=== PATIENT | male | born 1970 | race Caucasian/White ===

== ENCOUNTER 2019-11-13 11:41 | Outpatient (CLI) | payer SELFPAY ==
--- NOTE | 2019-11-13 11:50 | XR_ITS ---
WS: [id number] Left knee, 3 views, 11/13/2019 Clinical Data: KNEE PAIN Comparison: AP views of both knees and additional right knee views, 06/17/2013.. Findings: No fractures or dislocations are seen. The joint spaces are normal. The patella is intact. The soft t issues are unremarkable. There are small spurs of the anterior superior and anterior inferior aspects of the left patella. The posterior patella is unremarkable. XR/XR knee LT 3V* [id number] Impression: Mild osteoarthritis of the left patella.
--- NOTE | 2019-11-13 11:50 | XR_ITS ---
WS: [id number] AP and frog leg views of both hips, 11/13/2019 Clinical Data: HIP PAIN Comparison: AP pelvis and both hips, 05/26/2015. Findings: The pubic symphysis is normal. There are no fractures or dislocations. There is irregularity of both acetabula which may indicate mild osteoarthritis. The SI joints show fusion. This is unchanged from coreen ulloa previous study. . XR/XR hip BI 3-4V wo/w pel [id number] Impression: 1. Fusion of both SI joints unchanged from previous study. 2. Irregularity of both lateral acetabular lips suggestive of osteoarthritis.
--- NOTE | 2019-11-13 11:50 | XR_ITS ---
WS: [id number] Right knee, 3 views, 11/13/2019 Clinical Data: KNEE PAIN Comparison: Right knee, 06/17/2013. Findings: No fractures or dislocations are seen. The joint spaces are normal. The patella is intact. The soft t issues are unremarkable. Mild posterior irregularity of the patella is seen. There is a small anterior superior spur. XR/XR knee RT 3V* [id number] Impression: Right patellar osteoarthritis.
== END 2019-11-13 11:42 | disposition home or self-care (01) ==
LOC: RAD 11:46
PROVIDERS: PCP Family Medicine; Visit Provider Family Medicine
DX: M17.0 Bilateral primary osteoarthritis of knee (principal); M25.552 Pain in left hip; M25.562 Pain in left knee; M25.561 Pain in right knee; Z98.1 Arthrodesis status
CPT/HCPCS: 73522; 73562

== ENCOUNTER → 2020-02-18 08:25 | Outpatient (BNVA) | payer MEDICAID, SELFPAY | PROVIDERS: PCP Family Medicine; Referring Provider Family Medicine; Visit Provider Urology | DX: Z12.5 Encounter for screening for malignant neoplasm of prostate (principal); N40.0 Benign prostatic hyperplasia without lower urinary tract symptoms; N52.9 Male erectile dysfunction, unspecified; N40.1 Benign prostatic hyperplasia with lower urinary tract symptoms | CPT/HCPCS: 81001 ==

== ENCOUNTER → 2020-03-18 09:06 | Outpatient (BNVA) | payer SELFPAY | PROVIDERS: PCP Family Medicine; Visit Provider Family Medicine | DX: Z13.6 Encounter for screening for cardiovascular disorders (principal); M25.561 Pain in right knee; M25.562 Pain in left knee; G89.29 Other chronic pain; M54.42 Lumbago with sciatica, left side; M54.41 Lumbago with sciatica, right side | CPT/HCPCS: 80053; 80061; 85025 ==

== ENCOUNTER → 2020-09-23 09:06 | Outpatient (BNVA) | payer MEDICAID, SELFPAY | PROVIDERS: PCP Family Medicine; Visit Provider Psychiatry & Neurology Psychiatry | DX: F33.2 Major depressive disorder, recurrent severe without psychotic features (principal); F41.1 Generalized anxiety disorder; F43.12 Post-traumatic stress disorder, chronic; F12.21 Cannabis dependence, in remission; F15.21 Other stimulant dependence, in remission; F10.21 Alcohol dependence, in remission | CPT/HCPCS: 99214 ==

== ENCOUNTER 2020-10-25 12:31 | Outpatient (CLI) | payer MEDICAID, SELFPAY ==
--- NOTE | 2020-10-25 13:00 | XR_ITS ---
WS: [id number] LUMBAR SPINE: 3 VIEWS TECHNIQUE: AP, lateral and L5-S1 spot. HISTORY: low back pain with radiculopathy COMPARISON: None available. Lumbar vertebra are normally aligned. Small endplate osteophytes at the thoracolumbar junction and L4. No fractures. Very mild facet joint arthritis at L4-5 and L5-S1. Loss of the normal SI joint articulation. Fusion across the SI joints. XR/XR lumbar spine 2-3V* [id number] IMPRESSION: 1. Bilateral SI joint fusion. 2. No lumbar spine fracture.
== END 2020-10-25 12:32 | disposition home or self-care (01) ==
LOC: RADWPI 12:36
PROVIDERS: PCP Family Medicine; Visit Provider Family Medicine
DX: M54.2 Cervicalgia (principal); M54.16 Radiculopathy, lumbar region
CPT/HCPCS: 72100

== ENCOUNTER → 2020-11-12 09:06 | Outpatient (BNVA) | payer MEDICAID, SELFPAY | PROVIDERS: PCP Family Medicine; Visit Provider Psychiatry & Neurology Psychiatry | DX: F33.2 Major depressive disorder, recurrent severe without psychotic features (principal); F41.1 Generalized anxiety disorder; F43.12 Post-traumatic stress disorder, chronic; F12.21 Cannabis dependence, in remission; F15.21 Other stimulant dependence, in remission; F10.21 Alcohol dependence, in remission | CPT/HCPCS: 99214 ==

== ENCOUNTER 2020-11-24 09:38 | Outpatient (RCR) | payer MEDICAID, SELFPAY | END 2020-12-01 23:59 | disposition home or self-care (01) | LOC: SPT 09:38 | PROVIDERS: PCP Family Medicine; Referring Provider Family Medicine; Visit Provider Family Medicine | DX: M54.42 Lumbago with sciatica, left side (principal); M54.41 Lumbago with sciatica, right side; G89.29 Other chronic pain | CPT/HCPCS: 97110; 97161 ==

== ENCOUNTER 2020-12-02 06:00 | Outpatient (RCR) | payer MEDICAID, SELFPAY | END 2020-12-31 23:59 | disposition home or self-care (01) | LOC: SPT 06:00 | PROVIDERS: PCP Family Medicine; Referring Provider Family Medicine; Visit Provider Family Medicine | DX: M54.42 Lumbago with sciatica, left side (principal); M54.41 Lumbago with sciatica, right side; G89.29 Other chronic pain | CPT/HCPCS: 97110 ==

== ENCOUNTER 2021-01-01 06:00 | Outpatient (RCR) | payer MEDICAID, SELFPAY | END 2021-01-31 23:59 | disposition home or self-care (01) | LOC: SPT 06:00 | PROVIDERS: PCP Family Medicine; Referring Provider Family Medicine; Visit Provider Family Medicine | DX: M54.42 Lumbago with sciatica, left side (principal); M54.41 Lumbago with sciatica, right side; G89.29 Other chronic pain | CPT/HCPCS: 97110; 97530 ==

== ENCOUNTER → 2021-01-07 08:02 | Outpatient (BNVA) | payer MEDICAID, SELFPAY | PROVIDERS: PCP Family Medicine; Visit Provider Psychiatry & Neurology Psychiatry | DX: F33.2 Major depressive disorder, recurrent severe without psychotic features (principal); F41.1 Generalized anxiety disorder; F43.12 Post-traumatic stress disorder, chronic; F12.21 Cannabis dependence, in remission; F15.21 Other stimulant dependence, in remission; F10.21 Alcohol dependence, in remission | CPT/HCPCS: 99214 ==

== ENCOUNTER 2021-02-01 06:00 | Outpatient (RCR) | payer MEDICAID, SELFPAY | END 2021-03-02 23:59 | disposition home or self-care (01) | LOC: SPT 06:00 | PROVIDERS: PCP Family Medicine; Referring Provider Family Medicine; Visit Provider Family Medicine | DX: M54.42 Lumbago with sciatica, left side (principal); M54.41 Lumbago with sciatica, right side; G89.29 Other chronic pain | CPT/HCPCS: 97110 ==

== ENCOUNTER → 2021-03-04 12:16 | Outpatient (BNVA) | payer MEDICAID, SELFPAY | PROVIDERS: PCP Family Medicine; Visit Provider Psychiatry & Neurology Psychiatry | DX: F33.2 Major depressive disorder, recurrent severe without psychotic features (principal); F41.1 Generalized anxiety disorder; F43.12 Post-traumatic stress disorder, chronic; F12.21 Cannabis dependence, in remission; F15.21 Other stimulant dependence, in remission | CPT/HCPCS: 99214 ==

== ENCOUNTER 2021-03-07 21:53 | Inpatient (IN) | payer MEDICAID, SELFPAY ==
[2021-03-07 21:53] VITALS: BP 73/58; PULSE 120; RESP 12; TEMP 36.7; O2SAT 86; BMI 32.1
--- NOTE | 2021-03-07 21:56 | ECG_ITS ---
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1970 Requested By: Litzy Holley Order Number: [id number] Reading MD: MARIE COOK Measurements Intervals [place] Rate: 124 P: 64 [place]: 166 QRS: -73 QRSD: 90 T: 47 QT: 264 QTc: 380 Interpretive Statements SINUS TACHYCARDIA LOW QRS VOLTAGE IN PRECORDIAL LEADS [QRS DEFLECTION < 1.0 mV IN CHEST LEADS] POSSIBLE RIGHT VENTRICULAR CONDUCTION DELAY [RSR (QR) IN V1/V2] INFERIOR MYOCARDIAL INFARCTION [40+ ms Q WAVE AND/OR ST/T ABNORMALITY IN II/aVF], PROBABLY OLD ANTEROLATERAL MYOCARDIAL INFARCTION [40+ ms Q WAVE IN I/aVL/V3-V6], OF INDETERMINATE AGE No previous ECG available for comparison Electronically Signed On 03-08-2021 20:12:56 CDT by MARIE COOK [id number]
--- NOTE | 2021-03-07 21:57 | ED_ITS ---
HPI - SOB/Dyspnea General: Chief Complaint: Shortness of Breath/Dyspnea Stated Complaint: ams and diff breathing Time Seen by Provider: 03/07/21 21:55 Source: patient and EMS Mode of arrival: EMS Limitations: altered mental status History of Present Illness: HPI Narrative: 50-year-old male is here with EMS for altered mental status, shortness of breath. They were called out for dyspnea when they arrived patient was 70% on room air. Only history known is bipolar. Patient here is altered and only able to tell me his name. He is ill- appearing here and does have rales and rhonchi. No known fever. No known sick contacts. He denies any chest pain. Review of Systems General: Reports: ROS unobtainable due to mental status Resp: Reports: dyspnea and non-productive cough PFS ED PFSH: Surgical History H/O hernia repair H/O knee surgery History of tonsillectomy History of tympanostomy tube placement Family History Father Heart disease Social History Smoking and tobacco status: former smoker Quit status (tobacco): has quit using tobacco Year quit tobacco: 2004 Second hand smoke exposure: Yes Smoking risk assessment/counseling performed?: Yes Tobacco counseling given: counseling >3 minutes Alcohol intake: current Alcohol intake frequency: holidays/special occasions only Marital status: Current occupational status: unemployed History of recent travel: No Physical Exam Const: COMMON NORMALS: alert; negative for patient oriented x3 GENERAL APPEARANCE: in distress and ill appearing ORIENTATION/CONSCIOUSNESS: Yes oriented to person; not oriented to place and not oriented to time HENMT: COMMON NORMALS: normocephalic and atraumatic HEAD & SCALP: normocephalic and atraumatic Eye: COMMON NORMALS: Equal, round and reactive pupils present and EOMs intact bilaterally PUPIL: Yes Equal, round and reactive pupils present Neck/C-Spine: COMMON NORMALS: full ROM and supple Chest: COMMONS NORMALS: normal inspection of the chest and normal palpation of entire chest wall Resp: COMMON NORMALS: No retractions EFFORT & INSPECTION: Yes tachypneic and Yes respiratory distress AUSCULTATION: rales Cardio: COMMON NORMALS: regular rhythm and No murmurs present (Cardio) RATE: tachycardic RHYTHM: regular rhythm GI: COMMON NORMALS: Normal to inspection, nondistended, normoactive bowel sounds present, Soft to palpation, non-tender and no masses PALPATION: Yes Soft to palpation Extremity: COMMON NORMALS: normal to inspection and full ROM Neuro: COMMON NORMALS: moves all extremities and no focal motor deficits; negative for patient oriented x3 SENSORIUM/ORIENTATION: Yes alert, Yes oriented to person, No oriented to place and No oriented to time Psych: COMMON NORMALS: cooperative; negative for mental status grossly normal Skin: COMMON NORMALS: no rashes or lesions noted and no wounds GENERAL SKIN EXAM: no rashes or lesions noted Procedures Central Line Placement Right IJ: Time Out Performed: Yes Patient Placed on Monitor/Pulse Ox: Yes MD Prep: mask, gown and gloves Central Line Prep: Povidone-Iodine 1% Local Anesthetic: lidocaine 1% Amount of anesthesia used (mL): 2 Ultrasound Used for Placement: Yes Central Line Lumen Inserted: triple Post Procedure: sutured in place, good blood return, all ports aspirated, flushed, capped and sterile dressing applied Post Procedure X-Ray: tip of catheter in good position and no pneumothorax seen Patient Tolerated Procedure: well Complications: none Course Vital Signs: Vital signs: Vital Signs Temperature 98.1 F 03/07/21 21:53 Pulse Rate 125 H 03/07/21 22:23 Respiratory Rate 12 03/07/21 21:53 Blood Pressure 73/58 03/07/21 21:53 Pulse Oximetry 94 03/07/21 22:23 MDM - SOB/Dyspnea MDM Narrative: Medical decision making narrative: Patient presents here with septic shock with dyspnea as well. Patient does have elevated lactate acute kidney injury and elevated white count. Patient still quite hypotensive after 2 L of fluid. Patient had a central line placed and started on Levophed. Patient also given IV antibiotics. Spoke to hospitalist will admit to the ICU. Lab Data: Labs: Lab Results 03/07/21 03/07/21 03/07/21 Range/Units 22:20 22:33 22:33 WBC 21.9 H (4.0-10.0) 10^3/ uL RBC 3.50 L (4.1-5.3) 10^6/u L Hgb 9.1 L (11.7-16.6) g/dL Hct 31.3 L (42.0-52.0) % MCV 89.4 (80-94) fL MCH 26.0 L (28.0-34.0) pg MCHC 29.1 L (30.0-36.0) g/dL RDW 16.5 H (12.1-15.1) % Plt Count 318 (130-400) 10^3/c mm MPV 10.7 H (7.4-10.4) fL Neut % (Auto) 83.3 % Lymph % (Auto) 6.8 % [place] % (Auto) 9.0 % Eos % (Auto) 0.0 % Baso % (Auto) 0.4 % Neut # (Auto) 18.20 H (1.8-7.7) 10^3/u L Lymph # (Auto) 1.5 (0.8-4.8) 10^3/u L [place] # (Auto) 2.0 H (0.2-0.9) 10^3/u L Eos # (Auto) 0.0 (0.0-0.8) 10^3/u L Baso # (Auto) 0.1 (0.0-0.1) 10^3/u L Nucleated RBC % (a uto) 0.1 % Nucleated RBCs # 0.0 /100WBC D-Dimer 1.57 H (0-0.59) ug/mIFE U Sodium (136-145) mmol/L Potassium (3.5-5.1) mmol/L Chloride (98-107) mmol/L Carbon Dioxide (22-29) mmol/L Anion Gap (5-19) BUN (6-20) mg/dL Creatinine (0.7-1.2) mg/dL GFR Calculation (90-130) mL/min Glucose (65-115) mg/dL Calculated Osmolal ity (285-295) mOsm/k g Lactic Acid (0.5-2.2) mmol/L Calcium (8.5-10.5) mg/dL Total Bilirubin (0.15-1.2) mg/dL AST (0-40) U/L ALT (0-41) U/L Alkaline Phosphata se (40-130) IU/L Troponin T Baselin e (0-15) ng/L C-Reactive Protein (0.0-4.9) mg/L NT-Pro-B Natriuret Pep (0-125) pg/mL Total Protein (6.6-8.7) g/dL Albumin (3.5-5.2) g/dL Globulin (1.3-4.6) g/dL SARS-CoV-2 Ag (Rap id) Negative (Negative) 03/07/21 03/07/21 03/07/21 Range/Units 22:33 22:33 22:33 WBC (4.0-10.0) 10^3/ uL RBC (4.1-5.3) 10^6/u L Hgb (11.7-16.6) g/dL Hct (42.0-52.0) % MCV (80-94) fL MCH (28.0-34.0) pg MCHC (30.0-36.0) g/dL RDW (12.1-15.1) % Plt Count (130-400) 10^3/c mm MPV (7.4-10.4) fL Neut % (Auto) % Lymph % (Auto) % [place] % (Auto) % Eos % (Auto) % Baso % (Auto) % Neut # (Auto) (1.8-7.7) 10^3/u L Lymph # (Auto) (0.8-4.8) 10^3/u L [place] # (Auto) (0.2-0.9) 10^3/u L Eos # (Auto) (0.0-0.8) 10^3/u L Baso # (Auto) (0.0-0.1) 10^3/u L Nucleated RBC % (a uto) % Nucleated RBCs # /100WBC D-Dimer (0-0.59) ug/mIFE U Sodium 136 (136-145) mmol/L Potassium 6.4 H (3.5-5.1) mmol/L Chloride 99 (98-107) mmol/L Carbon Dioxide 24 (22-29) mmol/L Anion Gap 19.4 H (5-19) BUN 42 H (6-20) mg/dL Creatinine 3.3 H (0.7-1.2) mg/dL GFR Calculation 20.0 L (90-130) mL/min Glucose 185 H (65-115) mg/dL Calculated Osmolal ity 297 H (285-295) mOsm/k g Lactic Acid 5.0 H* (0.5-2.2) mmol/L Calcium 8.7 (8.5-10.5) mg/dL Total Bilirubin 0.5 (0.15-1.2) mg/dL AST 39 (0-40) U/L ALT 44 H (0-41) U/L Alkaline Phosphata se 118 (40-130) IU/L Troponin T Baselin e 20 H (0-15) ng/L C-Reactive Protein 127.2 H (0.0-4.9) mg/L NT-Pro-B Natriuret Pep 2846 H (0-125) pg/mL Total Protein 5.8 L (6.6-8.7) g/dL Albumin 3.4 L (3.5-5.2) g/dL Globulin 2.4 (1.3-4.6) g/dL SARS-CoV-2 Ag (Rap id) (Negative) Imaging Data^: CXR: Attestation: I personally reviewed and interpreted this imaging study as follows: Radiologist's impression: [address] [address] XRay Report Signed Patient: León Alvarado Unit #: [id number] : 1970 Age/Sex: 50 / M ADM Date: 03/07/21 Loc: ER Room/Bed: Attending Dr: Ordering Provider/Ordering MD: Litzy Holley MD Date of Service: 03/07/21 Procedure(s): XR chest 1V portable [id number] Accession Number(s): [id number] Report Number: [id number] PROCEDURE INFORMATION: Exam: XR Chest Exam date and time: 03/07/2021 9:55 PM Age: 50 years old Clinical indication: Shortness of breath; Additional info: SOB TECHNIQUE: Imaging protocol: XR of the chest. Views: 1 view. Total images: 1 COMPARISON: No relevant prior studies available. FINDINGS: Lungs: No visible active interstitial or alveolar airspace disease. Pleural spaces: Unremarkable. No pleural effusion. No pneumothorax. Heart/Mediastinum: Cardiac structures and configuration unremarkable. Bones/joints: Unremarkable. XR/XR chest 1V portable [id number] IMPRESSION: Nonacute. Dictated By: Juanito Gonzales Signed By: Juanito Gonzales Signed Date/Time: 03/07/212233 DD/ 32 EKG Data^: EKG 1: Attestation: I personally reviewed and interpreted this EKG as follows: EKG Interpretation Date: 03/07/21 EKG interpretation time: 22:17 Interpretation: sinus tach hr [address] or t wave abnormalities qrs 90 qtc 338 EKG 2: Attestation: I personally reviewed and interpreted this EKG as follows: EKG Interpretation Date: 03/08/21 EKG interpretation time: 00:06 Interpretation: sinus tach hr [address] or t wave abnormalities qrs 76 qtc 345 Critical Care Time 2 Critical Care Time: Critical Care Time: Yes Total Critical Care Time: 35 Attestation: This case had a high probability of a clinically significant, sudden, or life threatening deterioration of this patient's condition which required my full and direct attention, intervention and personal management. 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
[2021-03-07 22:02] VITALS: BP 103/50; PULSE 123; RESP 26; O2SAT 93
[2021-03-07 22:23] VITALS: PULSE 125; RESP 28; O2SAT 94
[2021-03-07 22:40] LABS: Basophils # 0.1 10^3/uL (0.0-0.1); Basophils % 0.4 %; Hematocrit 31.3 % (42.0-52.0); Hemoglobin 9.1 g/dL (11.7-16.6); Lymphocytes # 1.5 10^3/uL (0.8-4.8); Lymphocytes % 6.8 %; Mean Corpuscular HGB Conc 29.1 g/dL (30.0-36.0); Mean Corpuscular Volume 89.4 fL (80-94); Mean Platelet Volume 10.7 fL (7.4-10.4); Neutrophils % 83.3 %; Nucleated Red Blood Cells % 0.1 %; Platelet Count 318 10^3/cmm (130-400); Red Cell Distribution Width 16.5 % (12.1-15.1); White Blood Count 21.9 10^3/uL (4.0-10.0)
[2021-03-07 23:03] LABS: D Dimer 1.57 ug/mIFEU (0-0.59); Troponin(5th) Baseline 20 ng/L (0-15)
[2021-03-07 23:06] LABS: Alanine Aminotransferase 44 U/L (0-41); Albumin Level 3.4 g/dL (3.5-5.2); Alkaline Phosphatase 118 IU/L (40-130); Anion Gap 19.4 (5-19); Aspartate Amino Transferase 39 U/L (0-40); Blood Urea Nitrogen 42 mg/dL (6-20); C Reactive Protein 127.2 mg/L (0.0-4.9); Calcium 8.7 mg/dL (8.5-10.5); Carbon Dioxide 24 mmol/L (22-29); Chloride 99 mmol/L (98-107); Globulin 2.4 g/dL (1.3-4.6); Glucose 185 mg/dL (65-115); Osmolality Calculated 297 mOsm/kg (285-295); Potassium 6.4 mmol/L (3.5-5.1); Sodium 136 mmol/L (136-145); Total Bilirubin 0.5 mg/dL (0.15-1.2); Total Protein 5.8 g/dL (6.6-8.7)
[2021-03-07] MEDS: piperacillin-tazobactam 3.375 GM in sodium chloride 0.9% (plus) 50 ML IV (23:15)
[2021-03-07 23:26] LABS: Slide Review Slide Review Perform
[2021-03-07 23:30] LABS: NT Pro B Type Natriuretic Pept 2846 pg/mL (0-125)
[2021-03-07] MEDS: sodium chloride 0.9% 1,000 ML 999 ML IV ×2 (23:30)
[2021-03-07 23:33] LABS: SARS Covid-2 Antigen Negative (Negative)
--- NOTE | 2021-03-07 23:48 | XRR_ITS ---
PROCEDURE INFORMATION: Exam: XR Chest Exam date and time: 03/07/2021 11:48 PM Age: 50 years old Clinical indication: Other vascular access device placement or adjustment; Central line, non-tunnelled; Patient HX: Check for central line placement TECHNIQUE: Imaging protocol: XR of the chest. Views: 1 view. COMPARISON: CR (CHEST, ) 03/07/2021 9:54 PM FINDINGS: Tubes, catheters and devices: Right-sided central venous catheter is been placed with the tip in the distal superior vena cava. No pneumothorax. Lungs: There are low lung volumes. Otherwise, the lungs are clear. Pleural spaces: See Tubes, catheters and devices finding. Heart/Mediastinum: Unremarkable. No cardiomegaly. Bones/joints: Unremarkable. XR/XR chest 1V portable [id number] IMPRESSION: 1. Right-sided central venous catheter is been placed with the tip in the distal superior vena cava. No pneumothorax. 2. There are low lung volumes. Otherwise, the lungs are clear.
--- NOTE | 2021-03-07 23:56 | ECG_ITS ---
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1970 Requested By: Litzy Holley Order Number: [id number] Reading MD: MARIE COOK Measurements Intervals [place] Rate: 114 P: 58 [place]: 179 QRS: -67 QRSD: 76 T: 44 QT: 277 QTc: 383 Interpretive Statements SINUS TACHYCARDIA WITH OCCASIONAL ECTOPIC PREMATURE COMPLEXES LOW QRS VOLTAGE IN PRECORDIAL LEADS [QRS DEFLECTION < 1.0 mV IN CHEST LEADS] POSSIBLE RIGHT VENTRICULAR CONDUCTION DELAY [RSR (QR) IN V1/V2] POSSIBLE ANTERIOR MYOCARDIAL INFARCTION [30 ms Q WAVE IN V3/V4, OR R < 0.2 mV IN V4], OF INDETERMINATE AGE INFERIOR MYOCARDIAL INFARCTION [40+ ms Q WAVE AND/OR ST/T ABNORMALITY IN II/aVF], PROBABLY OLD Compared to ECG 03/07/2021 22:17:49 No significant changes Electronically Signed On 03-08-2021 20:14:07 CDT by MARIE COOK [id number]
[2021-03-08] VITALS (95 sets, daily range): BP systolic 73–165; BP diastolic 52–113; PULSE 1–138; RESP 14–40; TEMP 36.8–37.9; O2SAT 85–100
[2021-03-08] MEDS: vancomycin 1,000 MG in sodium chloride 0.9% 250 ML 250 MG IV (00:15)
[2021-03-08 00:16] LABS: Creatine Phosphokinase 440 U/L (39-308)
[2021-03-08 00:23] LABS: Reflex Lactate Order REFLEX LACTIC ORDERD
[2021-03-08] MEDS: sodium chloride 0.9% 1,000 ML 999 ML IV (00:45)
[2021-03-08 01:21] LABS: Add Urine Microscopic? YES; Bilirubin Urine Neg (Negative); Blood Urine 3+ (Negative); Glucose Urine UA Norm (Normal); Ketones Urine 1+ (Negative); Leukocyte Esterase Urine Negative (Negative); Nitrate Urine Negative (Negative); Protein Urine Trace (Negative); Specific Gravity, Urine 1.015 (1.005-1.030); Urine Appearance SL Hazy (CLEAR); Urine Color Yellow (Yellow); Urobilinogen Urine Norm (Negative); pH Urine 5 (5-7)
[2021-03-08 01:26] LABS: RBC Urine >100 /hpf (0-2)
[2021-03-08 01:27] LABS: Add Urine Culture? Yes; Bacteria Urine 2+ /hpf; Hyaline Casts Urine 0-4 /lpf; Mucus Urine 1+ /hpf; Squamous Epithelial Cell Urine 0-4 /hpf (0-5)
--- NOTE | 2021-03-08 01:31 | PM.HP ---
Providers/Chief Complaint Admitting Physician: Tahira Harding MD Primary Care Provider: Shanti Mckeon DO Chief Complaint: ams and diff breathing History of Present Illness León Alvarado is a 50 year old male who presented to the emergency room with decreased level of responsiveness and low oxygen levels. He was brought in by EMS. He is not really able to provide much in the way of history. His had been here earlier but is not present at the time. Information that was obtained was that he had not been feeling well for a couple of days. He has had cough. He can tell me that he had a little bit of a runny nose and a sore throat. He has not been eating as much. He denies chest pain. Unclear if he has had any fevers. He does not recall any. Denies any known sick contacts and reports that he actually had Covid vaccine describing receiving the first dose over at [facility] (which is consistent with where we were originally administering doses) and that a second dose was at the [facility] pharmacy. He cannot recall the dates. He states he has a card in his wallet but it is not here with him at the moment. Rapid Covid antigen in the emergency room was negative. PCR has been collected. Initial vitals on arrival to the emergency room today showed that he was afebrile, tachycardic with heart rate in the 120s, hypoxic with oxygen saturation in the mid 80s and with significant hypotension with pressures in the 70s. He received IV fluids and ultimately required initiation of pressors. He was placed on oxygen therapy and a trial of BiPAP was initiated although he would not maintain it. He continues to be tachycardic but with treatment oxygen levels and blood pressures have improved. He has multiple laboratory abnormalities. He is being admitted to the ICU for further care. He denies any tick bites but states that his had some. He denies significant vomiting or diarrhea. He denies spending a lot of time outside in the heat. He does admit to difficulty initiating a stream of urine but denies any hematuria, dark urine or flank pain. History is obtained from combination of patient and ER records today as well as review of prior clinical records in [facility]. Review of Systems Const: Reports: body aches, change in weight (Describes weight gain) and malaise; Denies: fever(s) or chills Eyes: Denies: photophobia or eye discomfort ENMT: Reports: throat pain, dental pain, dry mouth and nasal congestion Card: Denies: chest pain, palpitations or edema Resp: Reports: dyspnea, productive cough and non-productive cough GI: Reports: other (Has had distended abdomen for a long time); Denies: abdominal pain, nausea, vomiting, diarrhea, constipation, hematochezia or melena : Reports: urinary hesitancy and difficulty starting urination; Denies: flank pain, dysuria, oliguria or hematuria Musc: Reports: back pain (Chronic, no recent increase) and extremity pain (Chronic, not new); Denies: joint swelling or joint redness Skin/Breast: Denies: rash or sores Neuro: Denies: headache(s), numbness in extremities, weakness in extremities or difficulty walking Psych: Reports: other (Denies any acute difficulty with psychiatric medications/diagnoses) Monico/Lymph: Denies: easy bruising or easy bleeding Medications/Allergies Home Medications Medication Instructions Recorded Confirmed Last Taken Type ibuprofen 600 mg tablet 600 mg PO Q8H PRN #90 tab 05/26/20 03/04/21 Unknown Rx amoxicillin 875 mg-potassium 1 tab PO BID #20 tab 11/02/20 01/07/21 Unknown Rx clavulanate 125 mg tablet cyclobenzaprine 10 mg tablet 10 mg PO .po q hs #30 tab 11/02/20 03/04/21 Unknown Rx gabapentin 600 mg tablet 600 mg PO TID #90 tab 11/02/20 03/04/21 Unknown Rx tamsulosin 0.4 mg capsule 0.4 mg PO DAILY #30 cap 02/02/21 03/04/21 Unknown Rx buspirone 10 mg tablet 20 mg PO TID #180 tab 03/04/21 03/04/21 Unknown Rx clomipramine 50 mg capsule 50 mg PO .HS #60 cap 03/04/21 03/04/21 Unknown Rx hydroxyzine HCl 50 mg tablet 100 mg PO .HS PRN #60 tab 03/04/21 03/04/21 Unknown Rx mirtazapine 30 mg tablet 60 mg PO .HS #60 tab 03/04/21 03/04/21 Unknown Rx quetiapine 100 mg tablet 100 mg PO .HS #30 tab 03/04/21 03/04/21 Unknown Rx venlafaxine 150 mg 150 mg PO DAILY #30 cap 03/04/21 03/04/21 Unknown Rx capsule,extended release 24 hr venlafaxine 75 mg capsule,extended 75 mg PO DAILY #30 cap 03/04/21 03/04/21 Unknown Rx release 24 hr Allergies Allergy/AdvReac Type Severity Reaction Status Date / Time No Known Allergies Allergy Verified 03/04/21 12:43 PFSH Acute PFSH: Medical History (Updated 03/08/21 @ 02:18 by Tahira Harding MD) Alcohol use disorder, moderate, in sustained remission Amphetamine use disorder, moderate, in sustained remission Bilateral hearing loss BPH (benign prostatic hyperplasia) Cannabis use disorder, moderate, in sustained remission Chronic low back pain with bilateral sciatica Erectile dysfunction Generalized anxiety disorder Major depressive disorder, 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, bilateral Post-traumatic stress disorder, chronic Speech impediment Surgical History H/O hernia repair H/O knee surgery History of tonsillectomy History of tympanostomy tube placement Family History Father Heart disease Social History (Updated 03/08/21 @ 01:32 by Tahira Harding MD) Smoking and tobacco status: former smoker Quit status (tobacco): has quit using tobacco Year quit tobacco: 2004 Alcohol intake: current Alcohol intake frequency: holidays/special occasions only Substance/Drug Use: former Date of last use: thc Marital status: Current occupational status: unemployed Vitals/I&O/Wt Last Vital Signs Temp 98.1 F 03/07/21 21:53 Pulse 125 H 03/07/21 22:23 Resp 26 H 03/07/21 22:02 BP 103/50 03/07/21 22:02 Pulse Ox 94 03/07/21 22:23 Weight last 48 hrs Weight 113.398 kg Physical Exam Narrative: EXAM NARRATIVE: Constitutional: Awake, able to answer some questions though difficult to obtain full history, ill-appearing HEENT: Normocephalic, very dry lips, poor dentition, halitosis, nasopharynx is clear, mucous membranes are dry, has an underbite Neck: Supple, no rigidity Respiratory: Clear to auscultation bilaterally, tachypneic, pauses every now and then when talking, oxygen saturations dropped into the 80s when he takes off his oxygen, currently requiring 5 L Cardiovascular: Tachycardic, regular rhythm, no murmurs auscultated Abdomen: Soft, distended, nontender, easily reducible umbilical hernia approximately quarter sized, positive bowel sounds : Normal external genitalia, Bills catheter noted Extremities: No pitting edema, feet are cool to touch, no mottling, capillary refill less than 3 seconds, dorsalis pedis and posterior tibialis pulses are 1+ and equal Skin: Dry, pale, scattered minor sores, no petechiae or rashes Neuro: Hard of hearing, speech is understandable although stutters at times, has an underbite but face otherwise appears symmetric, moves all extremities, handgrip equal, toes are downgoing Psych: Calm, cooperative, oriented to person, place and knows that he is in the emergency room and being admitted to the hospital Data : 03/07/21 22:33 03/07/21 22:33 Micro: Microbiology 03/07/21 22:30 Blood Culture - Preliminary Blood SPECIMEN COLLECTED 03/07/21 22:33 Blood Culture - Preliminary Blood SPECIMEN COLLECTED Other data: Laboratory Results WBC 21.9 10^3/uL (4.0-10.0) H 03/07/21 22:33 RBC 3.50 10^6/uL (4.1-5.3) L 03/07/21 22:33 Hgb 9.1 g/dL (11.7-16.6) L 03/07/21 22:33 Hct 31.3 % (42.0-52.0) L 03/07/21 22: MCV 89.4 fL (80-94) 03/07/21 22:33 MCH 26.0 pg (28.0-34.0) L 03/07/21 22:33 MCHC 29.1 g/dL (30.0-36.0) L 03/07/21 22: RDW 16.5 % (12.1-15.1) H 03/07/21 22:33 Plt Count 318 10^3/cmm (130-400) 03/07/21 22: MPV 10.7 fL (7.4-10.4) H 03/07/21 22:33 Neut % (Auto) 83.3 % 03/07/21 22:33 Lymph % (Auto) 6.8 % 03/07/21 22:33 Bandera % (Auto) 9.0 % 03/07/21 22:33 Eos % (Auto) 0.0 % 03/07/21 22:33 Baso % (Auto) 0.4 % 03/07/21 22:33 Neut # (Auto) 18.20 10^3/uL (1.8-7.7) H 03/07/21 22:33 Lymph # (Auto) 1.5 10^3/uL (0.8-4.8) 03/07/21 22:33 Bandera # (Auto) 2.0 10^3/uL (0.2-0.9) H 03/07/21 22:33 Eos # (Auto) 0.0 10^3/uL (0.0-0.8) 03/07/21 22:33 Baso # (Auto) 0.1 10^3/uL (0.0-0.1) 03/07/21 22:33 Nucleated RBC % (auto) 0.1 % 03/07/21 22: Nucleated RBCs # 0.0 /100WBC 03/07/21 22:33 D-Dimer 1.57 ug/mIFEU (0-0.59) H 03/07/21 22:33 Sodium 136 mmol/L (136-145) 03/07/21 22:33 Potassium 6.4 mmol/L (3.5-5.1) H 03/07/21 22:33 Chloride 99 mmol/L (98-107) 03/07/21 22:33 Carbon Dioxide 24 mmol/L (22-29) 03/07/21 22:33 Anion Gap 19.4 (5-19) H 03/07/21 22:33 BUN 42 mg/dL (6-20) H 03/07/21 22:33 Creatinine 3.3 mg/dL (0.7-1.2) H 03/07/21 22:33 GFR Calculation 20.0 mL/min (90-130) L 03/07/21 22:33 Glucose 185 mg/dL (65-115) H 03/07/21 22:33 Calculated Osmolality 297 mOsm/kg (285-295) H 03/07/21 22:33 Lactic Acid 5.0 mmol/L (0.5-2.2) H* 03/07/21 22:33 Calcium 8.7 mg/dL (8.5-10.5) 03/07/21 22:33 Total Bilirubin 0.5 mg/dL (0.15-1.2) 03/07/21 22:33 AST 39 U/L (0-40) 03/07/21 22:33 ALT 44 U/L (0-41) H 03/07/21 22:33 Alkaline Phosphatase 118 IU/L (40-130) 03/07/21 22:33 Creatine Kinase 440 U/L (39-308) H* 03/07/21 22:38 Troponin T Baseline 20 ng/L (0-15) H 03/07/21 22:33 C-Reactive Protein 127.2 mg/L (0.0-4.9) H 03/07/21 22:33 NT-Pro-B Natriuret Pep 2846 pg/mL (0-125) H 03/07/21 22:33 Total Protein 5.8 g/dL (6.6-8.7) L 03/07/21 22:33 Albumin 3.4 g/dL (3.5-5.2) L 03/07/21 22:33 Globulin 2.4 g/dL (1.3-4.6) 03/07/21 22:33 Urine Color Yellow (Yellow) 03/08/21 00:00 Urine Appearance Sl hazy (CLEAR) 03/08/21 00:00 Urine pH 5 (5-7) 03/08/21 00:00 Ur Specific Pheba 1.015 (1.005-1.030) 03/08/21 00:00 Urine Protein Trace (Negative) 03/08/21 00:00 Urine Glucose (UA) Norm (Normal) 03/08/21 00:00 Urine Ketones 1+ (Negative) H 03/08/21 00:00 Urine Blood 3+ (Negative) H 03/08/21 00:00 Urine Nitrate Negative (Negative) 03/08/21 00:00 Urine Bilirubin Neg (Negative) 03/08/21 00:00 Urine Urobilinogen Norm mg/dL (Negative) 03/08/21 00:00 Ur Leukocyte Esterase Negative (Negative) 03/08/21 00:00 Urine RBC >100 /hpf (0-2) H 03/08/21 00:00 Urine WBC 5-10 /hpf (0-5) H 03/08/21 00:00 Ur Squamous Epith Cells 0-4 /hpf (0-5) H 03/08/21 00:00 Amorphous Sediment Not Reportable 03/08/21 00:00 Urine Bacteria 2+ /hpf (NONE) H 03/08/21 00:00 Hyaline Casts 0-4 /lpf H 03/08/21 00:00 Urine Mucus 1+ /hpf 03/08/21 00:00 SARS-CoV-2 Ag (Rapid) Negative (Negative) 03/07/21 22:20 Impressions Chest X-Ray 03/07/21 23:48 IMPRESSION: 1. Right-sided central venous catheter is been placed with the tip in the distal superior vena cava. No pneumothorax. 2. There are low lung volumes. Otherwise, the lungs are clear. EKG per my interpretation with poor baseline tracing, sinus tachycardia, no significantly peaked T waves A&P Assessment and plan (1) Acute encephalopathy: Multifactorial secondary to hypoxemia, metabolic abnormalities, possibly effect from chronic medications in the setting of acute renal failure, plus or minus related to acute infection Status: Acute (2) Septic shock: As evidenced by persistent hypotension despite IV fluids and requiring pressors, sinus tachycardia, leukocytosis, acute renal failure, acute encephalopathy, elevation in D-dimer, suspected infection with potential sources being pulmonary, dental based on currently available information although other sources of infection also have to be considered eluding various viral and bacterial sources. Other sources of shock such as hypovolemic and cardiogenic are also within the differential. Status: Acute (3) Acute renal failure: Specific etiology unclear at this point in time but given degree of hypotension suspect related to ATN. He is chronically on NSAID therapy and does have a history of BPH. Last available comparative labs are from March a year ago. He currently has associated hyperkalemia. Status: Acute Qualifiers: Acute renal failure type: with acute tubular necrosis Qualified Code(s): N17.0 - Acute kidney failure with tubular necrosis (4) Dyspnea: With hypoxemia without remarkable changes noted on chest x-ray. Has had Covid vaccination by his report. Rapid Covid antigen is negative. Currently requiring oxygen which he does not usually. He himself no longer smokes though continues to have second hand tobacco exposure. D-dimer is elevated consider thrombotic event would be in the differential as well. No calf pain. Status: Acute Qualifiers: Dyspnea type: shortness of breath Qualified Code(s): R06.02 - Shortness of breath (5) Normocytic anemia: Last available comparative labs are from a year ago when hemoglobin was normal. Platelet count is currently within normal range. No reported blood loss. No large visible bruising. May have a degree of chronic anemia that has simply not been appreciated previously. Bone marrow suppression and other mechanisms are also within the differential. Status: Acute (6) BPH (benign prostatic hyperplasia): Chronically on Flomax Status: Chronic Qualifiers: Lower urinary tract symptom presence: unspecified whether lower urinary tract symptoms present Qualified Code(s): N40.0 - Benign prostatic hyperplasia without lower urinary tract symptoms Additional A&P Information Elevated CK level, mild Elevation in BNP of currently unclear significance, may simply be related to renal failure Elevated blood sugar without a history of diabetes Multiple psychiatric diagnoses for which he is chronically on BuSpar, clomipramine, hydroxyzine, mirtazapine, Seroquel, Effexor according to available information in [facility] Chronic pain for which she has been treated with NSAIDs, Flexeril and gabapentin Inpatient admission to the ICU Add Levaquin to Zosyn Status post 1 dose of vancomycin in the emergency room Renal dose antibiotics Received 2 L of fluids in the emergency room without improvement in blood pressures We will recheck BMP to ensure improvement in potassium level Repeat stat lactic acid and troponin Blood cultures were collected in the emergency room Continue IV fluids secondary to renal failure and elevation in CK level but at low rate, monitor tolerance of fluids Recheck CK level Monitor overall volume status Check ferritin, LDH, PT and PTT, fibrinogen, pro calcitonin Covid PCR was collected in the emergency room Continue Covid isolation in the interim Continue oxygen therapy, weaning as able Check echocardiogram in the morning Check venous Doppler of the lower extremities Unable to check CTA of the chest currently due to renal failure Will cover empirically with subcutaneous heparin; have not initiated treatment dose anticoagulation empirically until I get an idea of next H&H though may consider if H&H is stable; with fluids given expect drop in hemoglobin Lipid panel in the morning as previous lipid panel from a year ago showed elevation Sliding scale initially, check hemoglobin A1c Hold home medications presently secondary to multiple abnormalities Supportive care otherwise Monitor patient closely for progressive decline Pending/ordered tests/procedures to follow: Multiple labs, echocardiogram, venous ultrasound of both lower extremities have been ordered Lines/tubes: Central line in the right neck, Bills catheter DVT prophylaxis: Subcutaneous heparin and SCDs Plans, findings and concerns discussed with patient is much as he could understand and he was given an opportunity to ask questions. not available at the time of my evaluation either here or by phone. Anticipated Disposition: Home although will ultimately depend on clinical course given the severity of current illness Code Status: Full code Attestations Medical Necessity Statement*: Anticipated stay greater than two midnights []. Coding Level of Care Code Acute Photographic Engineer for [facility] Fwd Diagnoses Acute encephalopathy G93.40 Septic shock A41.9; R65.21 Acute renal failure N17.0 Acute renal failure type: with acute tubular necrosis Dyspnea R06.02 Dyspnea type: shortness of breath Normocytic anemia D64.9 BPH (benign prostatic hyperplasia) N40.0 Lower urinary tract symptom presence: unspecified whether lower urinary tract symptoms present
[2021-03-08 02:25] LABS: INR 1.31 (0.8-1.2); Partial Thromboplastin Time 19.5 SECONDS (23.9-36.7)
[2021-03-08] MEDS: dexamethasone 4 mg/mL INJ 6 MG IVP (02:25)
[2021-03-08 02:29] LABS: Troponin 5 2HR 11.15 ng/L (0-15)
[2021-03-08 02:30] LABS: Anion Gap 15.3 (5-19); Blood Urea Nitrogen 48 mg/dL (6-20); Calcium 7.6 mg/dL (8.5-10.5); Carbon Dioxide 22 mmol/L (22-29); Chloride 105 mmol/L (98-107); Glomerular Filtration Rate 27.6 mL/min (90-130); Glucose 152 mg/dL (65-115); Lactic Acid level (Lactate) 2.5 mmol/L (0.5-2.2); Osmolality Calculated 296 mOsm/kg (285-295); Sodium 135 mmol/L (136-145)
[2021-03-08 02:32] LABS: C Reactive Protein 134.7 mg/L (0.0-4.9); Ferritin 49 ng/mL (30-400); Lactate Dehydrogenase 264 U/L (135-225); Magnesium 1.6 mg/dL (1.7-2.3); Troponin 5 2HR Delta -8.85 ABS# (0-10)
[2021-03-08 02:35] LABS: Potassium 7.3 mmol/L (3.5-5.1)
--- NOTE | 2021-03-08 02:36 | ECG_ITS ---
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: : 1970 Requested By: Tahira Harding Order Number: [id number] Reading MD: MARIE COOK Measurements Intervals Brea Rate: 134 P: 48 ID: [id number] QRS: -73 QRSD: 77 T: 51 QT: 265 QTc: 396 Interpretive Statements SINUS TACHYCARDIA LOW QRS VOLTAGE IN PRECORDIAL LEADS [QRS DEFLECTION < 1.0 mV IN CHEST LEADS] POSSIBLE RIGHT VENTRICULAR CONDUCTION DELAY [RSR (QR) IN V1/V2] POSSIBLE ANTERIOR MYOCARDIAL INFARCTION [30 ms Q WAVE IN V3/V4, OR R < 0.2 mV IN V4], OF INDETERMINATE AGE INFERIOR MYOCARDIAL INFARCTION [40+ ms Q WAVE AND/OR ST/T ABNORMALITY IN II/aVF], PROBABLY OLD Compared to ECG 03/08/2021 00:06:28 No significant changes Electronically Signed On 03-08-2021 20:12:48 CDT by MARIE COOK [id number] f
[2021-03-08 02:37] LABS: Fibrinogen 173 mg/dL (174-498); Procalcitonin 2.79 ng/mL (0-0.5)
[2021-03-08] MEDS: insulin regular-human 10 UNIT in SYRINGE 1 EACH IVP ×2 (02:40→06:54)
[2021-03-08] MEDS: calcium gluconate 0.1 gm/mL 10% SDV 10mL 1 GM IVP ×2 (02:47→06:27)
[2021-03-08] MEDS: dextrose 50% syringe 50 mL IVP ×2 (03:00→06:52)
--- NOTE | 2021-03-08 03:15 | PC.NURSE ---
Admit Note Pt arrived to unit alert and oriented to person only. Pt does follow some commands and at other times patient needs frequent reminding to leave oxygen and monitors on. Sinus tach on arrival to unit rate 130's. Pt arrived on 6L nasal cannula with O2 saturation 90%. Lungs have coarse wheezes, tachypneic and shallow respiration. Abd is distended, soft, with hypoactive bowel sounds. Denies tenderness.
--- NOTE | 2021-03-08 03:28 | USCV_ITS ---
Christiano León Age: 50 Gender: M : 1970 Exam Date: 03/08/2021 05:28 Ordering Phys: Tahira aHrding MD Technologist: Kari Renner [place] [facility] [place]: INCREASED D DIMER HISTORY: Increased D-Dimer PROCEDURES: The venous duplex Doppler examination of both lower extremities was performed in the standard fashion. The following venous structures were evaluated: common femoral vein, profunda vein, proximal portion of the greater saphenous vein, superficial femoral vein, and the popliteal vein. In addition, the posterior tibial and peroneal trunk were evaluated. Serial compression, augmentation maneuvers, and spectral Doppler flow evaluation were performed. FINDINGS: Normal 2-D Doppler and augmentation and compressibility throughout the lower extremity venous structures. Additional imaging through the proximal calf veins also reveals no thrombus. Limited evaluation of the greater saphenous vein is patent with no thrombus. CONCLUSIONS No DVT bilateral lower extremities. Dr. Jasmyn Calero DO (Electronically Signed) Final Date: 08 March 2021 07:56 S
--- NOTE | 2021-03-08 03:50 | PC.NURSE ---
Black Emesis pt have copious projectile black emesis . Nurse at bedside during event, suction available and HOB above [address] Harding on unit and notified of event. Remains tachycardic 130's, BP remained stable on levophed. 4mg zofran was given, complete linen change at this time
[2021-03-08] MEDS: sodium chloride 0.9% 1,000 ML 75 ML IV ×2 (03:52→16:39)
[2021-03-08] MEDS: ondansetron 2 mg/ML SDV 2 mL 4 MG IVP ×2 (04:00→20:37)
[2021-03-08] MEDS: pantoprazole 40 mg SDV IVP (04:18)
[2021-03-08] MEDS: levofloxacin-dextrose 5 % 750 MG/150 ML PREMIX 100 MG IV (04:18)
--- NOTE | 2021-03-08 04:29 | PC.NURSE ---
see printed vital list scanned into chart
[2021-03-08 04:41] LABS: ABG PCO2 52.2 mmHg (35-45); ABG PH Result 7.26 (7.35-7.45); Arterial Blood Gas Hematocrit 21.9 % (42-52); Base Excess ABG -3.7 mmol/L (-2.0-2.0); Blood Gas Allen Test Pos; Blood Gas Operator Identificat JB; Blood Gas Sample Site Radial, right; Blood Gas Sample Type Arterial; HCO3 ABG 23.2 mmol/L (22-26); Oxygen Device OXY MASK; PO2 ABG 74.6 mmHg (80.0-100.0)
[2021-03-08 05:01] LABS: Basophils # 0.1 10^3/uL (0.0-0.1); Basophils % 0.4 %; Eosinophils # 0.2 10^3/uL (0.0-0.8); Hematocrit 23.6 % (42.0-52.0); Hemoglobin 6.9 g/dL (11.7-16.6); Lymphocytes # 1.5 10^3/uL (0.8-4.8); Lymphocytes % 7.3 %; Mean Corpuscular HGB Conc 29.2 g/dL (30.0-36.0); Mean Corpuscular Hemoglobin 26.4 pg (28.0-34.0); Mean Corpuscular Volume 90.4 fL (80-94); Mean Platelet Volume 11.2 fL (7.4-10.4); Monocytes # 1.5 10^3/uL (0.2-0.9); Monocytes % 6.9 %; Neutrophils # 17.74 10^3/uL (1.8-7.7); Neutrophils % 83.9 %; Nucleated Red Blood Cells % 0.1 %; Platelet Count 252 10^3/cmm (130-400); Red Blood Count 2.61 10^6/uL (4.1-5.3); Red Cell Distribution Width 16.5 % (12.1-15.1); White Blood Count 21.1 10^3/uL (4.0-10.0)
[2021-03-08 05:03] LABS: Urine Creatinine 71 mg/dL (39-259); Urine Random Sodium 41 mmol/L
[2021-03-08 05:30] LABS: Troponin 5 6HR 10.48 ng/L (0-15)
[2021-03-08 05:33] LABS: Alanine Aminotransferase 53 U/L (0-41); Albumin Level 2.7 g/dL (3.5-5.2); Alkaline Phosphatase 88 IU/L (40-130); Anion Gap 16.4 (5-19); Aspartate Amino Transferase 60 U/L (0-40); Blood Urea Nitrogen 53 mg/dL (6-20); C Reactive Protein 152.8 mg/L (0.0-4.9); Calcium 7.7 mg/dL (8.5-10.5); Carbon Dioxide 24 mmol/L (22-29); Chloride 106 mmol/L (98-107); Chol HDL Ratio 3.52 mg/dL (1.0-5.00); Cholesterol 88 mg/dL (0-200); Globulin 1.9 g/dL (1.3-4.6); Glomerular Filtration Rate 28.9 mL/min (90-130); Glucose 172 mg/dL (65-115); HDL Cholesterol 25 mg/dL (60-100); LDL Cholesterol Calculated 42 mg/dL (50-129); LDL HDL Ratio 1.68 RATIO (0.00-3.22); Magnesium 1.7 mg/dL (1.7-2.3); Osmolality Calculated 308 mOsm/kg (285-295); Potassium 6.4 mmol/L (3.5-5.1); Sodium 140 mmol/L (136-145); Total Bilirubin 0.5 mg/dL (0.15-1.2); Total Protein 4.6 g/dL (6.6-8.7); Triglycerides 106 mg/dL (0-150); Uric Acid 8.4 mg/dL (3.4-7.0)
[2021-03-08 05:42] LABS: Estmated Average Glucose 117; Hemoglobin A1C 5.7 % (4.0-6.0)
[2021-03-08 05:57] LABS: Troponin 5 6HR Delta -9.52 ng/L (0-12)
[2021-03-08 06:00] LABS: Creatine Phosphokinase 457 U/L (39-308)
--- NOTE | 2021-03-08 06:00 | PC.NURSE ---
Black Emesis At 0600 patient vomiting approx 500ml black emesis. Pt diaphoretic and skin color pale to extremities. BP dropped to 78/53, HR 129. Levo titrated .Dr. Harding notified via phone and received telephone orders to place NG tube and KUB. Critical phos and CK labs given to Dr. Harding, physician to place medication orders.
[2021-03-08 06:01] LABS: Phosphorus 0.7 mg/dL (2.5-4.5)
--- NOTE | 2021-03-08 06:14 | XRR_ITS ---
PROCEDURE INFORMATION: Exam: XR Abdomen Exam date and time: 03/08/2021 6:14 AM Age: 50 years old Clinical indication: Vomiting TECHNIQUE: Imaging protocol: XR of the abdomen. Views: Frontal supine view of the abdomen. 1 View. COMPARISON: CR (CHEST, ) 03/07/2021 11:43 PM FINDINGS: Gastrointestinal tract: Normal. No bowel dilation. Bones/joints: Unremarkable. XR/XR KUB portable [id number] IMPRESSION: No acute findings.
--- NOTE | 2021-03-08 06:15 | PC.NURSE ---
NG tube pt does not tolerate placement of NG tube. With several nurses assisting and multiple attempts. Pt shakes head back and forth expelling NG tube, and yells at nursing staff and refusing NG tube. Education provided on use and treatment of NG tube.
[2021-03-08 06:16] LABS: Slide Review Slide Review Perform
[2021-03-08] MEDS: piperacillin-tazobactam 3.375 GM in sodium chloride 0.9% (plus) 50 ML IV ×3 (06:20→23:16)
[2021-03-08] MEDS: sodium chloride 0.9% 500 ML IV (06:27)
--- NOTE | 2021-03-08 07:00 | PC.NURSE ---
Physician Notification Dr. Harding notified of decrease in hemoglobin to 6.9. Increase in oxygen requirements. Pt O2 saturation 83% on 10L oxymask. Pt switched to 15 NRB at this time.
[2021-03-08 08:01] LABS: ABG PH Result 7.27 (7.35-7.45); Arterial Blood Gas Hematocrit 22.3 % (42-52); Base Excess ABG -4.5 mmol/L (-2.0-2.0); Blood Gas Allen Test Pos; Blood Gas Operator Identificat GD; Blood Gas Sample Site Radial, left; Blood Gas Sample Type Arterial; HCO3 ABG 22.1 mmol/L (22-26); Oxygen Device OXY MASK; PO2 ABG 78.2 mmHg (80.0-100.0)
[2021-03-08] MEDS: sodium chloride 0.9% 100 mL Bag 50 ML IV (08:17)
--- NOTE | 2021-03-08 08:48 | PC.NURSE ---
0700 recd alert, confused, n.g. tube attempted, became combative procedure stopped.
--- NOTE | 2021-03-08 08:49 | PC.NURSE ---
0830 dr. malin in, attempted n.g. pt. combative. procedure stopped.
--- NOTE | 2021-03-08 09:42 | PC.CHAP ---
Pastoral Care Encounter/Spiritual Assessment Type of Contact [] Declined highway maintainer visit [] Patient/Family/Request visit [] Outpatient visit [] Follow-up visit [] Physician referral [] Code/Alert [x] Routine visit [] Staff referral [] Actively dying [] Patient sleeping [] Family support [] [] Out of room [] Palliative care [] [] Receiving care in room [] Pre-surgical visit [] Trauma [] Long length of stay [x] ICU visit [] Other: Relational/Emotional Strength [] Patient feels connected with others/family/visitors/staff [] Distress [] Loneliness/isolation [] Abandonment Spirituality of Patient [] Person of Lily [] Attends Jehovah'S Witness of their Lily [] Believes in Prayer [] Reads Bible or Judaism materials [] There are Spiritual issues to be addressed Supervisor Intelligence Analyst Interventions [x] Prayer [] Active listening [] Non-anxious presence [] Spiritual/emotional support [] Crisis/trauma care [] Spiritual counseling [] Bereavement support [] Provided bereavement packet [] Provided Bible/devotional materials [] Provided toy/stuffed animal, coloring book to patient or family member [] Provided Communion [] Anointing/[place] [] Salvation [x] Completed spiritual assessment [] Other: Impact on Illness or Injury [] Angry [] Fearful [] Anxious [] Often cries [] Exhaustion [] Unable to work [] Unable to attend yarsani [] Unable to walk/stand [] Unable to read [] Unable to drive [] Unable to eat/drink [] Unable to sleep [] Unable to be with family [] Patient intubated [] Other: Summary Time spent with patient
[2021-03-08 09:45] LABS: Glucose Point of Care 258 mg/dL (70-110)
--- NOTE | 2021-03-08 09:49 | PC.NURSE ---
keeps trying to get out of bed to go pee. explained the renteria catheter, w/o his satisfaction to such.
--- NOTE | 2021-03-08 10:10 | PC.PHAR ---
PT UNABLE TO VERIFY MEDICATIONS-PT STATES HIS WAS TAKING CARE OF HIS MEDICATIONS BUT STATES WE SHOULD TALK TO HIS MOHTER-PTS MOTHER MARILIA MASSEY STATES HE ONLY FILLS AT [facility] AND STATES SHE WILL TRY TO BRING HIS MED BOTTLES IN ON 03/08/21 OR 03/09/21-MEDICATIONS ENTERED ARE MEDS THAT SHOW UP ON EXT MED HISTORY AND FROM PREVIOUS ENTERED MED LIST-[facility] STATES THEY HAVE A RX ON HOLD FOR MIRTAZAPINE 60MG HS WRITTEN IN 03/04/21-[facility] STATES THE PT PICKED UP 45MG HS ON 03/04/21
[2021-03-08] MEDS: sodium polystyrene sulfonate 15 gm/60 mL Btl PO (10:40)
[2021-03-08] MEDS: pantoprazole 40 MG in sodium chloride 0.9% (plus) 100 ML 20 MG IV ×4 (10:42→19:13)
[2021-03-08 11:23] LABS: Blood Urea Nitrogen 52 mg/dL (6-20); Calcium 8.4 mg/dL (8.5-10.5); Carbon Dioxide 22 mmol/L (22-29); Chloride 108 mmol/L (98-107); Glomerular Filtration Rate 46.2 mL/min (90-130); Glucose 242 mg/dL (65-115); Osmolality Calculated 312 mOsm/kg (285-295); Sodium 140 mmol/L (136-145)
[2021-03-08] MEDS: dextrose 50% syringe 50 mL 25 ML IVP (12:45)
[2021-03-08] MEDS: insulin regular-human 5 UNIT in SYRINGE 1 EACH IVP (12:52)
[2021-03-08] MEDS: acetaminophen 325 mg Tablet 650 MG PO (13:58)
[2021-03-08] MEDS: diphenhydrAMINE 50 mg Capsule PO (13:59)
--- NOTE | 2021-03-08 14:59 | PC.NURSE ---
1455 failed to scan saline apparently hadd to undo protonix scan and rescan
--- NOTE | 2021-03-08 15:05 | PC.NURSE ---
1500 resting quieter, forceful cough, non productive
[2021-03-08] MEDS: sodium chloride 0.9% (100 ml) 100 ML 8 ML (15:13)
[2021-03-08 15:54] LABS: Coronavirus Test Green County Not Detected
--- NOTE | 2021-03-08 16:28 | PM.PN ---
Subjective Subjective: Interval history: Patient was seen and examined this morning, continues to have black tarry vomitus. Continues to be on 12 L/min oxygen through facemask, continues to be on Levophed. Vitals/I&O/Wt Last Vital Signs Temp 99.5 F 03/08/21 14:20 Pulse 137 H 03/08/21 15:00 Resp 24 H 03/08/21 15:00 BP 121/78 03/08/21 15:00 Pulse Ox 100 03/08/21 15:00 03/08/21 03/08/21 03/08/21 06:59 14:59 22:59 Intake Total 2532.4 / 2532.4 1037.133 / 1037.133 Output Total 300 / 300 1300 / 1300 Balance 2232.4 / 2232.4 -262.867 / -262.867 Weight last 48 hrs Weight 105.959 kg Weight 113.398 kg Physical Exam Narrative: EXAM NARRATIVE: Alert and awake HENMT: COMMON NORMALS: normocephalic and atraumatic HEAD & SCALP: normocephalic and atraumatic Chest: CHEST: Yes Symmetrical chest wall rise Resp: OTHER: Coarse breath sounds bilaterally. Cardio: COMMON NORMALS: regular rate, regular rhythm, S1 normal heart sound present, S2 normal heart sound present, No gallops present (Cardio), No murmurs present (Cardio), No rub (Cardio) and Peripheral pulses 2+ throughout RATE: regular rate RHYTHM: regular rhythm HEART SOUNDS: S1 normal heart sound present and S2 normal heart sound present PERIPHERAL PULSES: Peripheral pulses 2+ throughout GI: COMMON NORMALS: Normal to inspection, nondistended, normoactive bowel sounds present, Soft to palpation, non-tender, No hepatosplenomegaly present and no masses AUSCULTATION: Yes normoactive bowel sounds PALPATION: Yes Soft to palpation and Yes No hepatosplenomegaly present RECTAL EXAM: Yes deferred Extremity: COMMON NORMALS: no clubbing, cyanosis or edema and no pedal edema Urinary Catheter Management^: Bills: Cath Placed During This Visit: no Reason for Continuing Indwelling Catheter: Accurate Measurement of Urinary Output in Critically Ill Patients Data : 03/08/21 16:58 03/08/21 16:58 Micro: Microbiology 03/07/21 22:30 Blood Culture - Preliminary Blood SPECIMEN COLLECTED 03/07/21 22:33 Blood Culture - Preliminary Blood SPECIMEN COLLECTED A&P Assessment and plan (1) Acute encephalopathy: Multifactorial secondary to hypoxemia, metabolic abnormalities, possibly effect from chronic medications in the setting of acute renal failure, plus or minus related to acute infection Status: Acute (2) Septic shock: Severe shock: Likely hypovolemic : As evidenced by persistent hypotension despite IV fluids and requiring pressors, sinus tachycardia, leukocytosis, acute renal failure, acute encephalopathy, elevation in D-dimer Likely secondary to GI bleed, sepsis could be a contributor. Elevated WBC, lactic acid and pro [place], could come from severe dehydration secondary to volume loss, as well as secondary to acute renal failure. Blood culture Urine culture X-ray chest Procalcitonin MRSA PCR CT abdomen and pelvis without contrast Continue Vanco and Zosyn for now Status: Acute (3) Acute renal failure: Specific etiology unclear at this point in time but given degree of hypotension suspect related to ATN. He is chronically on NSAID therapy and does have a history of BPH. Last available comparative labs are from March a year ago. He currently has associated hyperkalemia. Status: Acute Qualifiers: Acute renal failure type: with acute tubular necrosis Qualified Code(s): N17.0 - Acute kidney failure with tubular necrosis (4) Normocytic anemia: Likely secondary to upper GI bleed. S/p 2 unit PRBC as well as 1 bag of FFP. Monitor CBC Status: Acute (5) GI bleed: Likely secondary to NSAID use. On Protonix drip Will need EGD once stable. Status: Acute (6) Respiratory failure with hypoxia: Acute hypoxic respiratory failure likely secondary to aspiration pneumonia. Initial chest x-ray is failing to show any infiltrate. Given the adequate IV hydration will do a repeat chest x-ray. Currently broadly covered with antibiotic. Status: Acute (7) BPH (benign prostatic hyperplasia): Chronically on Flomax Status: Chronic Qualifiers: Lower urinary tract symptom presence: unspecified whether lower urinary tract symptoms present Qualified Code(s): N40.0 - Benign prostatic hyperplasia without lower urinary tract symptoms (8) Alcohol use disorder, moderate, in sustained remission: Status: Chronic (9) Hyperkalemia: Patient has received dextrose insulin, calcium gluconate as well as Kayexalate, along with nebulization. Current serum potassium is 5.7. Continue biometrics consultant BMP Status: Acute (10) Hypophosphatemia: Severe hypophosphatemia: Patient has received IV phosphorus. Monitor serum phosphorus for now. Status: Acute (11) Major depressive disorder, recurrent severe without psychotic features: Status: Chronic Additional A&P Information Elevated CK level, mild Elevation in BNP of currently unclear significance, may simply be related to renal failure Elevated blood sugar without a history of diabetes Multiple psychiatric diagnoses for which he is chronically on BuSpar, clomipramine, hydroxyzine, mirtazapine, Seroquel, [facility] Chronic pain for which she has been treated with NSAIDs, Flexeril and gabapentin Inpatient admission to the ICU Add Levaquin to Zosyn Status post 1 dose of vancomycin in the emergency room Renal dose antibiotics Received 2 L of fluids in the emergency room without improvement in blood pressures We will recheck BMP to ensure improvement in potassium level Repeat stat lactic acid and troponin Blood cultures were collected in the emergency room Continue IV fluids secondary to renal failure and elevation in CK level but at low rate, monitor tolerance of fluids Recheck CK level Monitor overall volume status Check ferritin, LDH, PT and PTT, fibrinogen, pro calcitonin Covid PCR was collected in the emergency room Continue Covid isolation in the interim Continue oxygen therapy, weaning as able Check echocardiogram in the morning Check venous Doppler of the lower extremities Unable to check CTA of the chest currently due to renal failure Will cover empirically with subcutaneous heparin; have not initiated treatment dose anticoagulation empirically until I get an idea of next H&H though may consider if H&H is stable; with fluids given expect drop in hemoglobin Lipid panel in the morning as previous lipid panel from a year ago showed elevation Sliding scale initially, check hemoglobin A1c Hold home medications presently secondary to multiple abnormalities Supportive care otherwise Monitor patient closely for progressive decline Pending/ordered tests/procedures to follow: Multiple labs, echocardiogram, venous ultrasound of both lower extremities have been ordered Lines/tubes: Central line in the right neck, Bills catheter DVT prophylaxis: Subcutaneous heparin and SCDs Plans, findings and concerns discussed with patient is much as he could understand and he was given an opportunity to ask questions. not available at the time of my evaluation either here or by phone. Anticipated Disposition: Home although will ultimately depend on clinical course given the severity of current illness Code Status: Full code Attestations Medical Necessity Statement*: Patient needs to be in the hospital for management of shock, as well as acute renal failure. 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
[2021-03-08 17:18] LABS: Basophils # 0.1 10^3/uL (0.0-0.1); Basophils % 0.4 %; Hematocrit 28.5 % (42.0-52.0); Hemoglobin 8.7 g/dL (11.7-16.6); Lymphocytes # 1.4 10^3/uL (0.8-4.8); Lymphocytes % 8.9 %; Mean Corpuscular HGB Conc 30.5 g/dL (30.0-36.0); Mean Corpuscular Hemoglobin 26.2 pg (28.0-34.0); Mean Corpuscular Volume 85.8 fL (80-94); Mean Platelet Volume 10.7 fL (7.4-10.4); Monocytes # 1.4 10^3/uL (0.2-0.9); Monocytes % 8.7 %; Neutrophils # 13.06 10^3/uL (1.8-7.7); Neutrophils % 81.2 %; Nucleated Red Blood Cells % 0.2 %; Platelet Count 194 10^3/cmm (130-400); Positive M 1; Red Blood Count 3.32 10^6/uL (4.1-5.3); Red Cell Distribution Width 16.8 % (12.1-15.1); White Blood Count 16.1 10^3/uL (4.0-10.0)
[2021-03-08 17:31] LABS: Anion Gap 12.3 (5-19); Blood Urea Nitrogen 46 mg/dL (6-20); Calcium 8.1 mg/dL (8.5-10.5); Carbon Dioxide 26 mmol/L (22-29); Chloride 109 mmol/L (98-107); Glomerular Filtration Rate 58.7 mL/min (90-130); Glucose 117 mg/dL (65-115); Osmolality Calculated 307 mOsm/kg (285-295); Potassium 5.3 mmol/L (3.5-5.1); Sodium 142 mmol/L (136-145)
[2021-03-08 18:45] LABS: Glucose Point of Care 205 mg/dL (70-110)
[2021-03-08 18:53] LABS: Glucose Point of Care 191 mg/dL (70-110)
--- NOTE | 2021-03-08 20:45 | PC.NURSE ---
prbcs were infused. unit was scanned, product number would not scan, had to manual overide scan to start blood. not sure why it didnt show issued.
--- NOTE | 2021-03-08 21:48 | P.CONIM_ITS ---
Providers/Reason For Consult Consulting Physician/Specialty*: General Surgery Dr. Bass Reason for Consult*: GI bleed Attending Physician: Roverto Perez MD Primary Care Provider: Shanti Mckeon DO History of Present Illness History of Present Illness Information obtained from patient's chart as he is not very alert-León Alvarado is a 50 year old male who was brought to the ER with low sats and decreased level of responsiveness. His rapid Covid test was negative. In the ER patient was noted to be hypoxic, hypotensive and tachycardic. He was started on IV fluids but subsequently had to be started on pressors and was transferred to the ICU. Patient has not had any diarrhea but apparently had multiple episodes of black emesis. No fresh blood per rectum. Patient would not allow an NG tube to be placed by the nursing staff today. Has been off pressors since this aftern oon. He has not had any further emesis since afternoon Review of Systems General: Reports: ROS unobtainable due to mental status Meds/Allergies Home Medications and Allergies Home Medications Medication Instructions Recorded Confirmed Last Taken Type ibuprofen 600 mg tablet 600 mg PO Q8H PRN #90 tab 05/26/20 03/08/21 Unknown Rx gabapentin 600 mg tablet 600 mg PO TID #90 tab 11/02/20 03/08/21 Unknown Rx tamsulosin 0.4 mg capsule 0.4 mg PO DAILY #30 cap 02/02/21 03/08/21 Unknown Rx venlafaxine 150 mg 150 mg PO DAILY #30 cap 03/04/21 03/08/21 Unknown Rx capsule,extended release 24 hr venlafaxine 75 mg capsule,extended 75 mg PO DAILY #30 cap 03/04/21 03/08/21 Unknown Rx release 24 hr Seroquel 100 mg PO BEDTIME 03/08/21 03/08/21 Unknown History buspirone 20 mg PO TID 03/08/21 03/08/21 Unknown History calcium carbonate [Tums] 200 mg PO PRN 03/08/21 03/08/21 Unknown History clomipramine 50 mg PO BEDTIME 03/08/21 03/08/21 Unknown History cyclobenzaprine 10 mg PO BEDTIME 03/08/21 03/08/21 Unknown History diphenhydramine HCl [Allergy 25 - 50 mg PO DAILY PRN 03/08/21 03/08/21 Unknown History Relief(diphenhydramin)] hydroxyzine HCl 100 mg PO BEDTIME PRN 03/08/21 03/08/21 Unknown History mirtazapine 45 mg PO BEDTIME 03/08/21 03/08/21 Unknown History mirtazapine 60 mg PO .HS 03/08/21 03/08/21 Unknown History Allergies Allergy/AdvReac Type Severity Reaction Status Date / Time No Known Allergies Allergy Verified 03/08/21 10:00 Current Medications Current Medications Generic Name Dose Route Start Last Admin Trade Name Freq PRN Reason Stop Dose Admin Acetaminophen 650 mg 03/08/21 03:28 03/08/21 13:58 Acetaminophen 325 Mg Tablet PO 650 mg Q6H PRN Administration FEVER Docusate Sodium 100 mg 03/08/21 09:00 03/08/21 18:40 Docusate Sodium 100 Mg Capsule PO Not Given BID ANTONIA Norepinephrine Bitartrate 4 mg 254 mls @ 0 mls/hr 03/07/21 23:15 03/08/21 12:06 / Dextrose IV 0 ml/hr .Q0M ANTONIA 0 mls/hr Titration Protocol Per Protocol Sodium Chloride 1,000 mls @ 30 mls/hr 03/08/21 03:28 03/08/21 18:39 Sodium Chloride 0.9% IV 30 mls/hr .Q24H ANTONIA Infusion Piperacillin Sod/Tazobactam 50 mls @ 12.5 mls/hr 03/08/21 07:00 03/08/21 20:19 Sod 3.375 gm/ Sodium Chloride IV Infused Q8H ANTONIA Infusion Protocol As Directed Pantoprazole Sodium 40 mg/ 100 mls @ 20 mls/hr 03/08/21 09:00 03/08/21 19:13 Sodium Chloride IV 8 mg/hr .Q5H ANTONIA 20 mls/hr Administration 8 MG/HR Insulin Aspart 0 unit 03/08/21 21:00 03/08/21 08:43 Insulin Aspart 100 Unit/1 Ml SUBCUT 6 unit BEDTIME ANTONIA Administration Protocol Insulin Aspart 0 unit 03/08/21 08:00 03/08/21 19:49 Insulin Aspart 100 Unit/1 Ml SUBCUT 4 unit TIDWM ANTONIA Administration Protocol Lactobacillus Acidophilus 1 tab 03/08/21 09:00 03/08/21 18:40 Lactobacillus 1 Tablet PO Not Given BID ANTONIA Ondansetron HCl 4 mg 03/08/21 03:28 03/08/21 20:37 Ondansetron 2 Mg/Ml Sdv 2 Ml IVP 4 mg Q6H PRN Administration NAUSEA AND VOMITING PFSH Acute PFSH: Medical History Alcohol use disorder, moderate, in sustained remission Amphetamine use disorder, moderate, in sustained remission Bilateral hearing loss BPH (benign prostatic hyperplasia) Cannabis use disorder, moderate, in sustained remission Chronic low back pain with bilateral sciatica Erectile dysfunction Generalized anxiety disorder Major depressive disorder, 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, bilateral Post-traumatic stress disorder, chronic Speech impediment Surgical History H/O hernia repair H/O knee surgery History of tonsillectomy History of tympanostomy tube placement Family History Father Heart disease Social History Smoking and tobacco status: former smoker Quit status (tobacco): has quit using tobacco Year quit tobacco: 2004 Alcohol intake: current Alcohol intake frequency: holidays/special occasions only Substance/Drug Use: former Date of last use: thc Marital status: Current occupational status: unemployed Vitals/I&O/Wt Last Vital Signs Temp 99.6 F 03/08/21 20:30 Pulse 120 H 03/08/21 20:30 Resp 18 03/08/21 20:30 BP 151/104 03/08/21 20:30 Pulse Ox 91 03/08/21 20:30 03/08/21 03/08/21 03/08/21 06:59 14:59 22:59 Intake Total 2532.4 / 2532.4 1037.133 / 2283.216 1246.083 / 2283.216 Output Total 300 / 300 1300 / 4900 3600 / 4900 Balance 2232.4 / 2232.4 -262.867 / -2616.784 -2353.917 / -2616.784 Weight last 48 hrs Weight 233 lb 9.6 oz Weight 250 lb Physical Exam Narrative: EXAM NARRATIVE: HEENT: Normocephalic Eye: Sclera /conjunctiva normal Abdomen: Soft to palpation, NT ,slightly distended Neurological: Oriented to place person and time Skin: Intact, no lesions appreciated on gross exam Urinary Catheter Management^: Bills: Cath Placed During This Visit: no Reason for Continuing Indwelling Catheter: Accurate Measurement of Urinary Output in Critically Ill Patients Data Micro: Micro: Microbiology 03/07/21 22:30 Blood Culture - Pr eliminary Blood SPECIMEN [facility]JI 03/07/21 22:33 Blood Culture - Pr eliminary Blood SPECIMEN [place] A&P Assessment and plan (1) GI bleed: 50-year-old male/polysubstance abuse who presents with sepsis requiring pressor support. Patient had some black emesis concerning for upper GI bleed. No evidence of fresh blood per rectum. His hemoglobin has been around around 8- 9. At this point patient does not appear to have any of active GI bleed but if you were to develop hematemesis or significant hematochezia or if he were to get intubated due to his acute medical issues then we can proceed with the EGD but otherwise we will manage him conservatively with PPI therapy and regular labs to monitor his hemoglobin. Status: Acute Consult Attestations Medical Necessity Statement: As per attending physician Coding Level of Care Code Acute Utility Repairer for [facility] Wolfgang Diagnoses GI bleed K92.2
[2021-03-08 21:50] LABS: Glucose Point of Care 132 mg/dL (70-110)
[2021-03-09] VITALS (32 sets, daily range): BP systolic 119–170; BP diastolic 79–109; PULSE 111–130; RESP 14–26; TEMP 36.8–37.6; O2SAT 90–96
[2021-03-09] MEDS: pantoprazole 40 MG in sodium chloride 0.9% (plus) 100 ML 20 MG IV ×2 (00:17→05:23)
[2021-03-09] MEDS: ondansetron 2 mg/ML SDV 2 mL 4 MG IVP ×2 (03:51→20:32)
[2021-03-09 05:15] LABS: Basophils % 0.3 %; Hematocrit 26.3 % (42.0-52.0); Hemoglobin 8.1 g/dL (11.7-16.6); Lymphocytes # 1.6 10^3/uL (0.8-4.8); Lymphocytes % 10.1 %; Mean Corpuscular HGB Conc 30.8 g/dL (30.0-36.0); Mean Corpuscular Hemoglobin 26.3 pg (28.0-34.0); Mean Corpuscular Volume 85.4 fL (80-94); Mean Platelet Volume 10.5 fL (7.4-10.4); Monocytes # 1.2 10^3/uL (0.2-0.9); Monocytes % 7.6 %; Neutrophils # 12.74 10^3/uL (1.8-7.7); Neutrophils % 81.1 %; Nucleated Red Blood Cells % 0.1 %; Platelet Count 176 10^3/cmm (130-400); Red Blood Count 3.08 10^6/uL (4.1-5.3); Red Cell Distribution Width 17.2 % (12.1-15.1); White Blood Count 15.7 10^3/uL (4.0-10.0)
[2021-03-09 05:41] LABS: Procalcitonin 1.92 ng/mL (0-0.5)
[2021-03-09 05:53] LABS: Alanine Aminotransferase 61 U/L (0-41); Alkaline Phosphatase 97 IU/L (40-130); Anion Gap 13.3 (5-19); Aspartate Amino Transferase 51 U/L (0-40); Blood Urea Nitrogen 39 mg/dL (6-20); C Reactive Protein 117.4 mg/L (0.0-4.9); Calcium 8.3 mg/dL (8.5-10.5); Carbon Dioxide 28 mmol/L (22-29); Chloride 107 mmol/L (98-107); Creatine Phosphokinase 184 U/L (39-308); Globulin 2.5 g/dL (1.3-4.6); Glomerular Filtration Rate 71.1 mL/min (90-130); Glucose 114 mg/dL (65-115); Magnesium 1.7 mg/dL (1.7-2.3); Osmolality Calculated 308 mOsm/kg (285-295); Phosphorus 1.8 mg/dL (2.5-4.5); Potassium 4.3 mmol/L (3.5-5.1); Sodium 144 mmol/L (136-145); Total Bilirubin 0.3 mg/dL (0.15-1.2); Total Protein 5.5 g/dL (6.6-8.7)
[2021-03-09 05:59] LABS: Slide Review Slide Review Perform
--- NOTE | 2021-03-09 06:00 | XR_ITS ---
WS: [id number] Portable AP semiupright chest, 03/09/2021 Clinical Data: SOB Comparison: Portable chest, 03/07/2021. Findings: There is patchy atelectasis and/or consolidation in the left lower lobe. There is a left pl eural effusion. There is minimal right midlung atelectasis. The heart size is normal. The aortic arch is tortuous. The right internal jugular venous catheter ends in the superior vena cava. There is a m onitor lead overlying the right chest. XR/XR chest 1V portable [id number] Impression: 1. Patchy atelectasis and/or pneumonia in the left lower lobe. 2. Small left pleural effusion. 3. Patchy atelectasis in right midlung.
[2021-03-09] MEDS: piperacillin-tazobactam 3.375 GM in sodium chloride 0.9% (plus) 50 ML IV ×3 (06:01→22:08)
[2021-03-09] MEDS: sodium chloride 0.9% 1,000 ML 75 ML IV (08:19)
[2021-03-09] MEDS: lactobacillus 1 Tablet 1 TAB PO ×2 (09:13→17:50)
--- NOTE | 2021-03-09 10:24 | PC.CHAP ---
Pastoral Care Encounter/Spiritual Assessment Type of Contact [] Declined waiter/waitress room service visit [] Patient/Family/Request visit [] Outpatient visit [] Follow-up visit [] Physician referral [] Code/Alert [x] Routine visit [] Staff referral [] Actively dying [] Patient sleeping [] Family support [] [] Out of room [] Palliative care [] [x] Receiving care in room [] Pre-surgical visit [] Trauma [] Long length of stay [x] ICU visit [x] Other: Relational/Emotional Strength [] Patient feels connected with others/family/visitors/staff [] Distress [] Loneliness/isolation [] Abandonment Spirituality of Patient [] Person of Lily [] Attends Mu-Ism of their Lily [] Believes in Prayer [] Reads Bible or Gnosticist materials [] There are Spiritual issues to be addressed It Help Desk Associate Interventions [x] Prayer [] Active listening [] Non-anxious presence [] Spiritual/emotional support [] Crisis/trauma care [] Spiritual counseling [] Bereavement support [] Provided bereavement packet [] Provided Bible/devotional materials [] Provided toy/stuffed animal, coloring book to patient or family member [] Provided Communion [] Anointing/[place] [] Salvation [x] Completed spiritual assessment [] Other: Impact on Illness or Injury [] Angry [] Fearful [] Anxious [] Often cries [] Exhaustion [] Unable to work [] Unable to attend buddhist [] Unable to walk/stand [] Unable to read [] Unable to drive [] Unable to eat/drink [] Unable to sleep [] Unable to be with family [] Patient intubated [] Other: Summary Time spent with patient
--- NOTE | 2021-03-09 10:56 | CTR_ITS ---
PROCEDURE INFORMATION: Exam: CT Abdomen And Pelvis Without Contrast Exam date and time: 03/09/2021 10:56 AM Age: 50 years old Clinical indication: Abdominal pain; Generalized; Additional info: G. I bleed sudden onset of severe abd pain TECHNIQUE: Imaging protocol: Computed tomography of the abdomen and pelvis without contrast. Radiation optimization: All CT scans at this facility use at least one of these dose optimization techniques: automated exposure control; mA and/or kV adjustment per patient size (includes targeted exams where dose is matched to clinical indication); or iterative reconstruction. COMPARISON: CR XR KUB portable [id number] 03/08/2021 7:15 AM RADIATION DOSE METRICS: Total DLP (mGy-cm): 2013.32 FINDINGS: Lungs: Curvilinear atelectasis or scarring at the lung bases. Several scattered sub solid pulmonary nodules noted in the lung bases, the largest measuring 5 mm in size series 2, image 4. Heart: Hypoattenuating appearance of the blood within the cardiac ventricles suggestive of anemia. Liver: Diffuse hepatic steatosis. Gallbladder and bile ducts: Normal. No calcified stones. No ductal dilation. Pancreas: Normal. No ductal dilation. Spleen: Normal. No splenomegaly. Adrenal glands: Normal. No mass. Kidneys and ureters: 8 mm nonobstructing stone in the interpolar region left kidney series 2, image 45. 3 mm nonobstructing stone in the interpolar region of the left kidney slightly inferior to the previously described stone series 2, image 47. No obstructing stones within the urinary collecting system. Stomach and bowel: No obstruction. Scattered colonic diverticula without findings of acute diverticulitis. Appendix: No evidence of appendicitis. Intraperitoneal space: Unremarkable. No free air. No significant fluid collection. Vasculature: Unremarkable. No abdominal aortic aneurysm. Lymph nodes: Unremarkable. No enlarged lymph nodes. Urinary bladder: Bills balloon is noted within the prostatic urethra of with the tip of the Bilsl catheter extending to the base of the bladder. Trace intraluminal air noted within the bladder. Reproductive: Please see urinary bladder section. Bones/joints: No acute fracture. Soft tissues: 1.2 cm rounded focus within the subcutaneous tissues of the right anterior chest wall, likely a sebaceous cyst. CT/CT abdomen pelvis wo con [id number] IMPRESSION: 1. Nonobstructing stones within the left kidney measuring up to 8 mm in size. No obstructing stones within the urinary collecting system. 2. Bills balloon is noted within the prostatic urethra. Recommend repositioning/advancement. 3. Diffuse hepatic steatosis. 4. Multiple sub solid ground-glass nodules measuring up to 5 mm in size, most likely secondary to small airway infectious/inflammatory process. Fleischner guidelines below. As per Fleischner Society guidelines for follow-up and management of multiple subsolid pulmonary nodules measuring less than 6 mm: CT at 3-6 months, then if stable consider CT at 2 and 4 years in high-risk patients. Radiation Dose CTDIVOL = (mGy): DLP = 2013.32 (mGy-cm)
[2021-03-09 11:39] LABS: Glucose Point of Care 127 mg/dL (70-110)
[2021-03-09] MEDS: pantoprazole 40 mg SDV IVP ×2 (11:53→22:08)
--- NOTE | 2021-03-09 12:25 | PM.PN ---
Subjective Subjective: Interval history: Patient is more awake and alert, denies any abdominal pain, had some melena but no hematemesis or hematochezia.. He did not receive any transfusion overnight. He denies any history of peptic ulcer disease Vitals/I&O/Wt Last Vital Signs Temp 99.6 F 03/09/21 08:00 Pulse 121 H 03/09/21 08:00 Resp 19 H 03/09/21 08:00 BP 168/103 03/09/21 08:00 Pulse Ox 95 03/09/21 08:00 03/08/21 03/09/21 03/09/21 22:59 06:59 14:59 Intake Total 1704.083 / 2991.216 250 / 2991.216 892 / 892 Output Total 4400 / 6550 850 / 6550 Balance -2695.917 / -3558.784 -600 / -3558.784 892 / 892 Weight last 48 hrs Weight 229 lb 3.2 oz Weight 233 lb 9.6 oz Weight 250 lb Physical Exam Narrative: EXAM NARRATIVE: Abdomen: Soft, nontender, not distended Urinary Catheter Management^: Bills: Cath Placed During This Visit: no Reason for Continuing Indwelling Catheter: Accurate Measurement of Urinary Output in Critically Ill Patients Data : 03/09/21 04:30 03/09/21 04:30 Micro: Microbiology 03/08/21 00:00 Urine Culture - Preliminary Urine,Voided 03/08/21 20:30 Occult Blood (FIT) - Final Stool Routine Collection 03/07/21 22:30 Blood Culture - Preliminary Blood NEGATIVE TO DATE 03/07/21 22:33 Blood Culture - Preliminary Blood NEGATIVE TO DATE A&P Assessment and plan (1) GI bleed: Patient continues to have melena and his hemoglobin has been stable around 8.1. He is hemodynamically stable off pressors. No hematemesis or hematochezia. We will continue to observe. 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
--- NOTE | 2021-03-09 12:30 | P.PN_ITS ---
Subjective Subjective: Interval history: Patient was seen and examined this morning, currently much more alert and awake, had some melena but no hematemesis or hematochezia. Vitals/I&O/Wt Last Vital Signs Temp 99.6 F 03/09/21 10:00 Pulse 121 H 03/09/21 10:00 Resp 19 H 03/09/21 10:00 BP 168/103 03/09/21 10:00 Pulse Ox 95 03/09/21 10:00 03/08/21 03/09/21 03/09/21 22:59 06:59 14:59 Intake Total 1704.083 / 2741.216 250 / 2991.216 892 / 892 Output Total 4400 / 5700 850 / 6550 Balance -2695.917 / -2958.784 -600 / -3558.784 892 / 892 Weight last 48 hrs Weight 103.963 kg Weight 105.959 kg Weight 113.398 kg Physical Exam Const: COMMON NORMALS: patient oriented x3 HENMT: COMMON NORMALS: normocephalic and atraumatic HEAD & SCALP: normocephalic and atraumatic Chest: CHEST: Yes Symmetrical chest wall rise Resp: OTHER: Coarse breath sounds bilaterally. Cardio: COMMON NORMALS: regular rate, regular rhythm, S1 normal heart sound present, S2 normal heart sound present, No gallops present (Cardio), No murmurs present (Cardio), No rub (Cardio) and Peripheral pulses 2+ throughout RATE: regular rate RHYTHM: regular rhythm HEART SOUNDS: S1 normal heart sound present and S2 normal heart sound present PERIPHERAL PULSES: Peripheral pulses 2+ throughout GI: COMMON NORMALS: Normal to inspection, nondistended, normoactive bowel sounds present, Soft to palpation, non-tender, No hepatosplenomegaly present and no masses AUSCULTATION: Yes normoactive bowel sounds PALPATION: Yes Soft to palpation and Yes No hepatosplenomegaly present RECTAL EXAM: Yes deferred Extremity: COMMON NORMALS: no clubbing, cyanosis or edema and no pedal edema Neuro: COMMON NORMALS: patient oriented x3 Urinary Catheter Management^: Bills: Cath Placed During This Visit: no Reason for Continuing Indwelling Catheter: Accurate Measurement of Urinary Output in Critically Ill Patients Data : 03/09/21 04:30 03/09/21 04:30 Micro: Microbiology 03/08/21 00:00 Urine Culture - Preliminary Urine,Voided 03/08/21 20:30 Occult Blood (FIT) - Final Stool Routine Collection 03/07/21 22:30 Blood Culture - Preliminary Blood NEGATIVE TO DATE 03/07/21 22:33 Blood Culture - Preliminary Blood NEGATIVE TO DATE A&P Assessment and plan (1) Acute encephalopathy: Multifactorial secondary to hypoxemia, metabolic abnormalities, possibly effect from chronic medications in the setting of acute renal failure, plus or minus related to acute infection: Improving: Status: Acute (2) Septic shock: Severe shock: Likely hypovolemic : As evidenced by persistent hypotension despite IV fluids and requiring pressors, sinus tachycardia, leukocytosis, acute renal failure, acute encephalopathy, elevation in D-dimer Likely secondary to GI bleed, sepsis could be a contributor. Elevated WBC, lactic acid and pro [place], could come from severe dehydration secondary to volume loss, as well as secondary to acute renal failure. Blood culture: NTD Urine culture : NTD Procalcitonin: 2.79---> 1.92 Lactic acid: 5--> 2.5 MRSA PCR: CT abdomen and pelvis without contrast: No acute findings X-ray chest : Patchy atelectasis and/or pneumonia in the left lower lobe,Patchy atelectasis in right midlung. Continue Vanco and Zosyn for now Levofloxacin was discontinued. Status: Acute (3) Acute renal failure: Pre renal RONALD likely secondary to hypotension suspect related to ATN. He is chronically on NSAID therapy and does have a history of BPH. Baseline serum creatinine unknown: Admission serum creatinine: 3.3--> currently serum creatinine has normalized. CT abdomen and pelvis has failed to show any obstructive pathology Patient is continuing to make good urine output.Likely in polyuric phase of ATN. Continue to monitor intake output Monitor BMP Avoid nephrotoxic's Continue gentle IV hydration with normal saline at the rate of 50 cc an hour. Status: Acute Qualifiers: Acute renal failure type: with acute tubular necrosis Qualified C ode(s): N17.0 - Acute kidney failure with tubular necrosis (4) Normocytic anemia: Likely secondary to upper GI bleed. FOBT is positive S/p 2 units PRBC as well as 1 bag of FFP. Monitor CBC Status: Acute (5) GI bleed: Likely secondary to NSAID use. Initially on Protonix drip. Has been switched to Protonix 40mg IV every 12 hours daily Will need EGD once stable. Status: Acute (6) Respiratory failure with hypoxia: Acute hypoxic respiratory failure likely secondary to aspiration pneumoni a. Initial chest x-ray is failing to show any infiltrate. Given the adequate IV hydration will do a repeat chest x-ray. Currently broadly covered with antibiotic. Status: Acute (7) BPH (benign prostatic hyperplasia): Chronically on Flomax Status: Chronic Qualifiers: Lower urinary tract symptom presence: unspecified whether lower urinary tract symptoms present Qualified Code(s): N40.0 - Benign prostatic hyperplasia without lower urinary tract symptoms (8) Alcohol use disorder, moderate, in sustained remission: Status: Chronic (9) Hyperkalemia: Patient has received dextrose insulin, calcium gluconate as well as Kayexalate, along with nebulization. Current serum potassium is 5.7. 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 Monitor serum phosphorus for now. Status: Acute (11) Major depressive disorder, recurrent severe without psychotic features: Status: Chronic Additional A&P Information Elevated CK level, mild Elevation in BNP of currently unclear significance, may simply be related to renal failure Elevated blood sugar without a history of diabetes Multiple psychiatric diagnoses for which he is chronically on BuSpar, clomipramine, hydroxyzine, mirtazapine, Seroquel, Effexor according to available information in [email or web address] Chronic pain for which she has been treated with NSAIDs, Flexeril and gabapentin Inpatient admission to the ICU Add Levaquin to Zosyn Status post 1 dose of vancomycin in the emergency room Renal dose antibiotics Received 2 L of fluids in the emergency room without improvement in blood pressures We will recheck BMP to ensure improvement in potassium level Repeat stat lactic acid and troponin Blood cultures were collected in the emergency room Continue IV fluids secondary to renal failure and elevation in CK level but at low rate, monitor tolerance of fluids Recheck CK level Monitor overall volume status Check ferritin, LDH, PT and PTT, fibrinogen, pro calcitonin Covid PCR was collected in the emergency room Continue Covid isolation in the interim Continue oxygen therapy, weaning as able Check echocardiogram in the morning Check venous Doppler of the lower extremities Unable to check CTA of the chest currently due to renal failure Will cover empirically with subcutaneous heparin; have not initiated treatment dose anticoagulation empirically until I get an idea of next H&H though may consider if H&H is stable; with fluids given expect drop in hemoglobin Lipid panel in the morning as previous lipid panel from a year ago showed elevation Sliding scale initially, check hemoglobin A1c Hold home medications presently secondary to multiple abnormalities Supportive care otherwise Monitor patient closely for progressive decline Pending/ordered tests/procedures to follow: Multiple labs, echocardiogram, venous ultrasound of both lower extremities have been ordered Lines/tubes: Central line in the right neck, Bills catheter DVT prophylaxis: Subcutaneous heparin and SCDs Plans, findings and concerns discussed with patient is much as he could understand and he was given an opportunity to ask questions. not available at the time of my evaluation either here or by phone. Anticipated Disposition: Home although will ultimately depend on clinical course given the severity of current illness Code Status: Full code Attestations Medical Necessity Statement*: Patient needs to be in the hospital for the management of GI bleed , shock , renal failure. Coding Level of Care Code Acute Family Practice Doctor for [facility] Fwd Diagnoses Acute encephalopathy G93.40 Septic shock A41.9; R65.21 Acute renal failure N17.0 Acute renal failure type: with acute tubular necrosis Normocytic anemia D64.9 GI bleed K92.2 Respiratory failure with hypoxia J96.91 BPH (benign prostatic hyperplasia) N40.0 Lower urinary tract symptom presence: unspecified whether lower urinary tract symptoms present Alcohol use disorder, moderate, in sustained remission F10.21 Hyperkalemia E87.5 Hypophosphatemia E83.39 Major depressive disorder, recurrent severe without psychotic features F33.2
[2021-03-09] MEDS: guaiFENesin 100 mg/5 mL UDC 10 mL 400 MG PO ×2 (13:29→20:25)
[2021-03-09] MEDS: ipratropium-albuterol 3 mL Neb INHALATION ×2 (14:31→20:53)
[2021-03-09 17:02] LABS: Glucose Point of Care 147 mg/dL (70-110)
[2021-03-09] MEDS: sodium chloride 0.9% 1,000 ML 50 ML IV (17:51)
[2021-03-09] MEDS: phosphorus 250 mg Tablet PO (17:51)
[2021-03-09] MEDS: LORazepam 2 mg/mL INJ 1 mL IVP (17:58)
--- NOTE | 2021-03-09 18:20 | PC.NURSE ---
Shift summary Pt has been afebrile throughout the shift. He is tolerating sips and chips. He had 4 medium sized dark loose stools. He did complain of his renteria bothering him. The renteria balloon was deflated, renteria advanced and balloon re-inflated. Toward the evening the pt had began to pull on his renteria causing pink tinged urine. Renteria is still draining well and there appears to be no clots in the renteria tubing. Pt was educated on to not pull at his renteria.
[2021-03-09 18:30] LABS: Basophils % 0.1 %; Eosinophils % 0.2 %; Hematocrit 24.3 % (42.0-52.0); Hemoglobin 7.3 g/dL (11.7-16.6); Lymphocytes # 1.7 10^3/uL (0.8-4.8); Lymphocytes % 14.4 %; Mean Corpuscular Volume 86.5 fL (80-94); Mean Platelet Volume 10.2 fL (7.4-10.4); Monocytes # 0.7 10^3/uL (0.2-0.9); Monocytes % 6.1 %; Neutrophils # 9.03 10^3/uL (1.8-7.7); Neutrophils % 78.6 %; Nucleated Red Blood Cells % 0.2 %; Platelet Count 155 10^3/cmm (130-400); Red Blood Count 2.81 10^6/uL (4.1-5.3); Red Cell Distribution Width 17.3 % (12.1-15.1); White Blood Count 11.5 10^3/uL (4.0-10.0)
[2021-03-10] VITALS (28 sets, daily range): BP systolic 120–166; BP diastolic 71–116; PULSE 88–113; RESP 14–36; TEMP 36.8–37.2; O2SAT 88–98
[2021-03-10] LABS: Glucose Point of Care 120 mg/dL (70-110)
[2021-03-10] MEDS: LORazepam 2 mg/mL INJ 1 mL IVP (01:03)
[2021-03-10] MEDS: ipratropium-albuterol 3 mL Neb INHALATION (02:42)
--- NOTE | 2021-03-10 05:00 | USCV_ITS ---
León Alvarado Age: 50 Gender: M : 1970 Exam Date: 03/10/2021 12:29 Ordering Phys: Tahira Harding MD Technologist: Lydia Vega [place] [facility] [place] SH[place] BP: 136 / 95 HR: 107 Rhythm: Sinus Technical Quality: Adequate MEASUREMENTS (Male / Female) Normal Values 2D ECHO LV Diastolic Diameter PLAX 4.3 cm 4.2 - 5.9 / 3.9 - 5.3 cm LV Systolic Diameter PLAX 2.5 cm IVS Diastolic Thickness 1.2 cm 0.6 - 1.0 / 0.6 - 0.9 cm IVS Systolic Thickness 1.6 cm LVPW Diastolic Thickness 1.6 cm 0.6 - 1.0 / 0.6 - 0.9 cm LVPW Systolic Thickness 1.8 cm LVOT Diameter 2.1 cm LV Ejection Fraction 2D Teich 73.8 % LV Ejection Fraction MOD 2C 77.2 % LV Ejection Fraction 2C AL 77.6 % LA Diameter 3.0 cm LA Width 4.0 cm LA Height 4.7 cm RA Width 4.6 cm RA Height 4.9 cm Aorta at Sinotubular Diameter 3.9 cm M-MODE LV Diastolic Diameter MM 5.3 cm 4.2 - 5.9 / 3.9 - 5.3 cm LV Systolic Diameter MM 3.2 cm LV Ejection Fraction MM Teich 70.2 % IVS Diastolic Thickness MM 1.0 cm 0.6 - 1.0 / 0.6 - 0.9 cm IVS Systolic Thickness MM 1.1 cm LVPW Diastolic Thickness MM 1.3 cm 0.6 - 1.0 / 0.6 - 0.9 cm LVPW Systolic Thickness MM 1.8 cm Aortic Annulus Diameter 3.2 cm LA Ao Ratio MM 1.0 MV E Point Septal Separation 0.3 cm DOPPLER AV Peak Velocity 126.0 cm/s LVOT Peak Velocity 111.0 cm/s AV Area Cont Eq vti 3.2 cm squared AV Area Cont Eq pk 3.1 cm squared MV Peak Velocity 114.0 cm/s MV Area PHT 3.4 cm squared Mitral E to A Ratio 0.7 MV E' Velocity 42.0 cm/s Mitral E to MV E' Ratio 9.2 Mitral E to LV E' Lateral Ratio 9.8 Mitral E to LV E' Septal Ratio 8.7 TR Peak Velocity 252.5 cm/s TR Peak Gradient 25.5 mmHg TR Mean Velocity 121.0 cm/s TR Mean Gradient 7.3 mmHg TR Velocity Time Integral 36.3 cm Right Atrial Pressure 3.0 mmHg Pulmonary Artery Systolic Pressu 28.5 mmHg PV Peak Velocity 105.7 cm/s RV Acceleration Time 0.1 s RV Ejection Time 0.3 s RV AcT/ET 0.4 FINDINGS Left Ventricle Normal left ventricular cavity size. Normal left ventricular systolic function. No regional wall motion abnormalities. Left ventricular ejection fraction is estimated at 65 %. Grade I/IV diastolic dysfunction (abnormal relaxation filling pattern), normal to mildly elevated filling pressures. Right Ventricle The right ventricle is normal in size and function. Right Atrium The right atrium is normal in size. Left Atrium The left atrium is normal in size. Mitral Valve Moderately thickened mitral valve. No mitral valve stenosis. Mild mitral valve regurgitation. Aortic Valve Moderate aortic valve calcification. No aortic valve stenosis. Trace aortic valve regurgitation. Tricuspid Valve Trace to mild tricuspid valve regurgitation. Pulmonic Valve Structurally normal pulmonic valve without significant stenosis. There is no pulmonic regurgitation. Pericardium Normal pericardium without effusion. Aorta Normal ascending aorta dimension. CONCLUSIONS 1-Normal left ventricular cavity size. Normal left ventricular systolic function. No regional wall motion abnormalities. Left ventricular ejection fraction is estimated at 65 %. Grade I/IV diastolic dysfunction (abnormal relaxation filling pattern), normal to mildly elevated filling pressures. 2-Moderately thickened mitral valve. No mitral valve stenosis. Mild mitral valve regurgitation. 3-Moderate aortic valve calcification. No aortic valve stenosis. Trace aortic valve regurgitation. 4-Trace to mild tricuspid valve regurgitation. 5-There is no pericardial effusion. 6-Pulmonary artery systolic pressure is within normal limits. 7-Right atrial pressure is around 5 mm of mercury. 8-There are no prior echocardiogram studies to compare. Jessie Whaley MD (Electronically Signed) Final Date: 10 March 2021 14:02 S
[2021-03-10] MEDS: piperacillin-tazobactam 3.375 GM in sodium chloride 0.9% (plus) 50 ML IV ×2 (06:00→15:28)
[2021-03-10 06:06] LABS: Basophils % 0.2 %; Eosinophils # 0.1 10^3/uL (0.0-0.8); Eosinophils % 1.1 %; Hematocrit 28.5 % (42.0-52.0); Hemoglobin 8.7 g/dL (11.7-16.6); Lymphocytes % 18.7 %; Mean Corpuscular HGB Conc 30.5 g/dL (30.0-36.0); Mean Corpuscular Hemoglobin 26.4 pg (28.0-34.0); Mean Corpuscular Volume 86.4 fL (80-94); Mean Platelet Volume 10.3 fL (7.4-10.4); Monocytes # 0.9 10^3/uL (0.2-0.9); Monocytes % 8.2 %; Neutrophils # 7.44 10^3/uL (1.8-7.7); Neutrophils % 70.5 %; Nucleated Red Blood Cells # 0.1 /100WBC; Nucleated Red Blood Cells % 0.7 %; Platelet Count 155 10^3/cmm (130-400); Red Cell Distribution Width 17.2 % (12.1-15.1); White Blood Count 10.6 10^3/uL (4.0-10.0)
[2021-03-10 06:16] LABS: Alanine Aminotransferase 100 U/L (0-41); Albumin Level 3.1 g/dL (3.5-5.2); Alkaline Phosphatase 104 IU/L (40-130); Anion Gap 11.9 (5-19); Aspartate Amino Transferase 70 U/L (0-40); Blood Urea Nitrogen 21 mg/dL (6-20); Calcium 8.3 mg/dL (8.5-10.5); Carbon Dioxide 31 mmol/L (22-29); Chloride 105 mmol/L (98-107); Globulin 2.6 g/dL (1.3-4.6); Glomerular Filtration Rate 79.4 mL/min (90-130); Glucose 106 mg/dL (65-115); Osmolality Calculated 301 mOsm/kg (285-295); Potassium 3.9 mmol/L (3.5-5.1); Sodium 144 mmol/L (136-145); Total Bilirubin 0.9 mg/dL (0.15-1.2); Total Protein 5.7 g/dL (6.6-8.7)
[2021-03-10 06:21] LABS: Procalcitonin 0.95 ng/mL (0-0.5)
[2021-03-10 06:22] LABS: Magnesium 1.7 mg/dL (1.7-2.3); Phosphorus 2.4 mg/dL (2.5-4.5)
--- NOTE | 2021-03-10 08:48 | PC.NURSE ---
Assuming patient care at this time.
--- NOTE | 2021-03-10 08:58 | PC.CHAP ---
Pastoral Care Encounter/Spiritual Assessment Type of Contact [] Declined watch and clock repairer visit [] Patient/Family/Request visit [] Outpatient visit [] Follow-up visit [] Physician referral [] Code/Alert [x] Routine visit [] Staff referral [] Actively dying [x] Patient sleeping [] Family support [] [] Out of room [] Palliative care [] [] Receiving care in room [] Pre-surgical visit [] Trauma [] Long length of stay [x] ICU visit [] Other: Relational/Emotional Strength [] Patient feels connected with others/family/visitors/staff [] Distress [] Loneliness/isolation [] Abandonment Spirituality of Patient [] Person of Lily [] Attends Hoahaoism of their Lily [] Believes in Prayer [] Reads Bible or Roman Catholic materials [] There are Spiritual issues to be addressed Technician Support Engineer Interventions [x] Prayer [] Active listening [] Non-anxious presence [] Spiritual/emotional support [] Crisis/trauma care [] Spiritual counseling [] Bereavement support [] Provided bereavement packet [] Provided Bible/devotional materials [] Provided toy/stuffed animal, coloring book to patient or family member [] Provided Communion [] Anointing/[place] [] Salvation [x] Completed spiritual assessment [] Other: Impact on Illness or Injury [] Angry [] Fearful [] Anxious [] Often cries [] Exhaustion [] Unable to work [] Unable to attend cheondoism [] Unable to walk/stand [] Unable to read [] Unable to drive [] Unable to eat/drink [] Unable to sleep [] Unable to be with family [] Patient intubated [] Other: Summary Time spent with patient
--- NOTE | 2021-03-10 09:19 | PC.NURSE ---
Consent Dr. Bass at bedside, explained procedure, risk and benefits/ Patient has no further questions. Consent signed and placed into chart.
--- NOTE | 2021-03-10 09:41 | PC.NURSE ---
Patient to GI at 0930, accompanied by GI staff.
[2021-03-10] MEDS: sodium chloride 0.9% 1,000 ML 30 ML IV (09:52)
--- NOTE | 2021-03-10 10:00 | ANES.PREANE2 ---
Pre-Anesthetic Assessment Pre-Anesthetic Assessment: Height/Weight: Height 1.88 m Weight 100.471 kg Temp Pulse Resp BP Pulse Ox 98.8 F 94 20 H 136/95 94 03/10/21 08:00 03/10/21 09:40 03/10/21 09:40 03/10/21 09:40 03/10/21 09:40 Preop Diagnosis: gi bleed Proposed Procedure: Operation Date: 03/10/21 09:00 Proposed Procedures p EGD(Not Applicable) - Sonny Bass MD Was Beta Cole taken within 24 hours: N/A Was Clonidine taken within 24 hours: N/A Last intake: Intake Last Liquid Date 03/10/21 Last Liquid Time 05:00 Last Solid Date 03/07/21 Social: Social History: No alcohol and No tobacco Exam: Pre-Anes Outpt Exam: regular rate & rhythm Additional Exam Findings (including area of procedure): Dminished BS with coarse, bilaterales rales Airway: Submandibular: WNL Cervical ROM: WNL MP: 2 Pulmonary: Pulmonary: Cough and SOB CV/HEM: CV/HEM: HTN : : None reported Hepatic: Hepatic: None reported GI: Comments: Melena Metabolic: Metabolic: None reported Musc/skel: Musc/skel: None reported Neuropsych: Neuropsych: Bipolar and Dementia Anesthetic Plan: ASA status: 4E Anesthesia: MAC Meds/Allergies Current Medications: Current Medications Generic Name Dose Route Start Last Admin Trade Name Freq PRN Reason Stop Dose Admin Acetaminophen 650 mg 03/08/21 03:28 03/08/21 13:58 Acetaminophen 32 5 Mg Tablet PO 650 mg Q6H PRN Administration FEVER Albuterol/Ipratrop ium 3 ml 03/09/21 15:00 03/10/21 09:21 Ipratropium-Albu terol 3 Ml Neb INHALATION Not Given Q6H.RESPIRATORY S CH Docusate Sodium 100 mg 03/08/21 09:00 03/10/21 09:18 Docusate Sodium 100 Mg Capsule PO Not Given BID ANTONIA Guaifenesin 400 mg 03/09/21 12:30 03/10/21 08:13 Guaifenesin 100 Mg/5 Ml Udc 10 Ml PO Not Given Q4H ANTONIA Piperacillin Sod/T azobactam 50 mls @ 12.5 mls /hr 03/08/21 07:00 03/10/21 06:00 Sod 3.375 gm/ So dium Chloride IV 12.5 mls/hr Q8H ANTONIA Administration Protocol As Directed Sodium Chloride 1,000 mls @ 30 ml s/hr 03/10/21 08:54 03/10/21 09:52 Sodium Chloride 0.9% IV 03/11/21 08:53 30 mls/hr .Q24H ONE Administration Insulin Aspart 0 unit 03/08/21 21:00 03/09/21 20:25 Insulin Aspart 1 00 Unit/1 Ml SUBCUT Not Given BEDTIME ANTONIA Protocol Insulin Aspart 0 unit 03/08/21 08:00 03/10/21 08:13 Insulin Aspart 1 00 Unit/1 Ml SUBCUT Not Given TIDWM ANTONIA Protocol Lactobacillus Acid ophilus 1 tab 03/08/21 09:00 03/09/21 17:50 Lactobacillus 1 Tablet PO 1 tab BID ANTONIA Administration Lorazepam 2 mg 03/08/21 12:04 03/10/21 01:03 Lorazepam 2 Mg/M l Inj 1 Ml IVP 2 mg Q4H PRN Administration ANXIETY Ondansetron HCl 4 mg 03/09/21 00:00 03/09/21 20:32 Ondansetron 2 Mg /Ml Sdv 2 Ml IVP 4 mg Q4H PRN Administration NAUSEA AND VOMITI NG Pantoprazole Sodiu m 40 mg 03/09/21 11:00 03/09/21 22:08 Pantoprazole 40 Mg Sdv IVP 40 mg Q12H ANTONIA Administration Potassium Phosphat e 250 mg 03/09/21 18:00 03/09/21 17:51 Phosphorus 250 M g Tablet PO 250 mg BID ANTONIA Administration PFSH Anesthesia PFSH: Medical History Alcohol use disorder, moderate, in sustained remission Amphetamine use disorder, moderate, in sustained remission Bilateral hearing loss BPH (benign prostatic hyperplasia) Cannabis use disorder, moderate, in sustained remission Chronic low back pain with bilateral sciatica Erectile dysfunction Generalized anxiety disorder Major depressive disorder, 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, bilateral Post-traumatic stress disorder, chronic Speech impediment Surgical History H/O hernia repair H/O knee surgery History of tonsillectomy History of tympanostomy tube placement Family History Father Heart disease Social History Smoking and tobacco status: former smoker Quit status (tobacco): has quit using tobacco Year quit tobacco: 2004 Alcohol intake: current Alcohol intake frequency: holidays/special occasions only Substance/Drug Use: former Date of last use: thc Marital status: Current occupational status: unemployed Data Anesthesia CBC & Chem 7: 03/10/21 05:30 03/10/21 05:30 Other Labs: Laboratory Results - last 48 hr 03/08/21 03/08/21 03/08/21 03:00 04:15 10:04 WBC RBC Hgb Hct MCV MCH MCHC RDW Plt Count MPV Neut % (Auto) Lymph % (Auto) [place] % (Auto) Eos % (Auto) Baso % (Auto) Neut # (Auto) Lymph # (Auto) [place] # (Auto) Eos # (Auto) Baso # (Auto) Nucleated RBC % (auto) Nucleated RBCs # Sodium 140 Potassium 6.0 H Chloride 108 H Carbon Dioxide 22 Anion Gap 16.0 BUN 52 H Creatinine 1.6 H GFR Calculation 46.2 L Glucose 242 H POC Glucose Calculated Osmolality 312 H Calcium 8.4 L Phosphorus Magnesium Total Bilirubin AST ALT Alkaline Phosphatase Creatine Kinase C-Reactive Protein Total Protein Albumin Globulin Procalcitonin Nasal/Oral COVID-19 PCR Not detected Blood Type A Negative Rho(D) Type Negative / 0 Antibody Screen Negative Crossmatch See Detail 03/08/21 03/08/21 03/08/21 11:53 16:58 16:58 WBC 16.1 H RBC 3.32 L Hgb 8.7 L Hct 28.5 L MCV 85.8 D MCH 26.2 L MCHC 30.5 RDW 16.8 H Plt Count 194 MPV 10.7 H Neut % (Auto) 81.2 Lymph % (Auto) 8.9 [place] % (Auto) 8.7 Eos % (Auto) 0.0 Baso % (Auto) 0.4 Neut # (Auto) 13.06 H Lymph # (Auto) 1.4 [place] # (Auto) 1.4 H Eos # (Auto) 0.0 Baso # (Auto) 0.1 Nucleated RBC % (auto) 0.2 Nucleated RBCs # 0.0 Sodium 142 Potassium 5.3 H Chloride 109 H Carbon Dioxide 26 Anion Gap 12.3 BUN 46 H Creatinine 1.3 H GFR Calculation 58.7 L Glucose 117 H POC Glucose 205 H Calculated Osmolality 307 H Calcium 8.1 L Phosphorus Magnesium Total Bilirubin AST ALT Alkaline Phosphatase Creatine Kinase C-Reactive Protein Total Protein Albumin Globulin Procalcitonin Nasal/Oral COVID-19 PCR Blood Type Rho(D) Type Antibody Screen Crossmatch 03/08/21 03/08/21 03/09/21 18:45 21:47 04:30 WBC 15.7 H RBC 3.08 L Hgb 8.1 L Hct 26.3 L MCV 85.4 MCH 26.3 L MCHC 30.8 RDW 17.2 H Plt Count 176 MPV 10.5 H Neut % (Auto) 81.1 Lymph % (Auto) 10.1 [place] % (Auto) 7.6 Eos % (Auto) 0.0 Baso % (Auto) 0.3 Neut # (Auto) 12.74 H Lymph # (Auto) 1.6 [place] # (Auto) 1.2 H Eos # (Auto) 0.0 Baso # (Auto) 0.0 Nucleated RBC % (auto) 0.1 Nucleated RBCs # 0.0 Sodium Potassium Chloride Carbon Dioxide Anion Gap BUN Creatinine GFR Calculation Glucose POC Glucose 191 H 132 H Calculated Osmolality Calcium Phosphorus Magnesium Total Bilirubin AST ALT Alkaline Phosphatase Creatine Kinase C-Reactive Protein Total Protein Albumin Globulin Procalcitonin Nasal/Oral COVID-19 PCR Blood Type Rho(D) Type Antibody Screen Crossmatch 03/09/21 03/09/21 03/09/21 04:30 11:35 16:59 WBC RBC Hgb Hct MCV MCH MCHC RDW Plt Count MPV Neut % (Auto) Lymph % (Auto) [place] % (Auto) Eos % (Auto) Baso % (Auto) Neut # (Auto) Lymph # (Auto) [place] # (Auto) Eos # (Auto) Baso # (Auto) Nucleated RBC % (auto) Nucleated RBCs # Sodium 144 Potassium 4.3 Chloride 107 Carbon Dioxide 28 Anion Gap 13.3 BUN 39 H Creatinine 1.1 GFR Calculation 71.1 L Glucose 114 POC Glucose 127 H 147 H Calculated Osmolality 308 H Calcium 8.3 L Phosphorus 1.8 L Magnesium 1.7 Total Bilirubin 0.3 AST 51 H ALT 61 H Alkaline Phosphatase 97 Creatine Kinase 184 C-Reactive Protein 117.4 H Total Protein 5.5 L Albumin 3.0 L Globulin 2.5 Procalcitonin 1.92 H Nasal/Oral COVID-19 PCR Blood Type Rho(D) Type Antibody Screen Crossmatch 03/09/21 03/09/21 03/10/21 18:18 20:24 05:30 WBC 11.5 H RBC 2.81 L Hgb 7.3 L Hct 24.3 L MCV 86.5 MCH 26.0 L MCHC 30.0 RDW 17.3 H Plt Count 155 MPV 10.2 Neut % (Auto) 78.6 Lymph % (Auto) 14.4 [place] % (Auto) 6.1 Eos % (Auto) 0.2 Baso % (Auto) 0.1 Neut # (Auto) 9.03 H Lymph # (Auto) 1.7 [place] # (Auto) 0.7 Eos # (Auto) 0.0 Baso # (Auto) 0.0 Nucleated RBC % (auto) 0.2 Nucleated RBCs # 0.0 Sodium Potassium Chloride Carbon Dioxide Anion Gap BUN Creatinine GFR Calculation Glucose POC Glucose 120 H Calculated Osmolality Calcium Phosphorus 2.4 L Magnesium 1.7 Total Bilirubin AST ALT Alkaline Phosphatase Creatine Kinase C-Reactive Protein Total Protein Albumin Globulin Procalcitonin Nasal/Oral COVID-19 PCR Blood Type Rho(D) Type Antibody Screen Crossmatch 03/10/21 03/10/21 05:30 05:30 WBC 10.6 H RBC 3.30 L Hgb 8.7 L Hct 28.5 L MCV 86.4 MCH 26.4 L MCHC 30.5 RDW 17.2 H Plt Count 155 MPV 10.3 Neut % (Auto) 70.5 Lymph % (Auto) 18.7 [place] % (Auto) 8.2 Eos % (Auto) 1.1 Baso % (Auto) 0.2 Neut # (Auto) 7.44 Lymph # (Auto) 2.0 [place] # (Auto) 0.9 Eos # (Auto) 0.1 Baso # (Auto) 0.0 Nucleated RBC % (auto) 0.7 Nucleated RBCs # 0.1 Sodium 144 Potassium 3.9 Chloride 105 Carbon Dioxide 31 H Anion Gap 11.9 BUN 21 H Creatinine 1.0 GFR Calculation 79.4 L Glucose 106 POC Glucose Calculated Osmolality 301 H Calcium 8.3 L Phosphorus Magnesium Total Bilirubin 0.9 AST 70 H ALT 100 H Alkaline Phosphatase 104 Creatine Kinase C-Reactive Protein Total Protein 5.7 L Albumin 3.1 L Globulin 2.6 Procalcitonin 0.95 H Nasal/Oral COVID-19 PCR Blood Type Rho(D) Type Antibody Screen Crossmatch Micro: Microbiology 03/08/21 00:00 Urine Culture - Preliminary Urine,Voided Cardiac Studies: No Data to Display
--- NOTE | 2021-03-10 10:11 | P.PN_ITS ---
Subjective Subjective: Interval history: Denies any abdominal pain, nausea vomiting, received a unit PRBC yesterday since hemoglobin is down to 7.3 Vitals/I&O/Wt Last Vital Signs Temp 98.8 F 03/10/21 08:00 Pulse 94 03/10/21 09:40 Resp 20 H 03/10/21 09:40 BP 136/95 03/10/21 09:40 Pulse Ox 94 03/10/21 09:40 03/09/21 03/10/21 03/10/21 22:59 06:59 14:59 Intake Total 205.833 / 1697.833 600 / 1697.833 Output Total 1350 / 2450 500 / 2450 Balance -1144.167 / -752.167 100 / -752.167 Weight last 48 hrs Weight 221 lb 8 oz Weight 229 lb 3.2 oz Physical Exam Narrative: EXAM NARRATIVE: Abdomen: Soft, nontender, nondistended Urinary Catheter Management^: Bills: Cath Placed During This Visit: no Reason for Continuing Indwelling Catheter: Accurate Measurement of Urinary Output in Critically Ill Patients Data : 03/10/21 05:30 03/10/21 05:30 Micro: Microbiology 03/08/21 00:00 Urine Culture - Preliminary Urine,Voided A&P Assessment and plan (1) GI bleed: 50-year-old female with history of substance abuse alcoholism who presents with melena. Patient is currently hemodynamically stable but he has now received 3 units of PRBC Plan for EGD under MAC Procedure, risks, benefits and alternatives have been discussed with the patient who wishes to proceed with surgery. Status: Acute Attestations Medical Necessity Statement*: As per primary Coding Level of Care Code Acute [facility] Puller [facility] Diagnoses GI bleed K92.2
[2021-03-10 10:31] LABS: Glucose Point of Care 114 mg/dL (70-110)
[2021-03-10] MEDS: phosphorus 250 mg Tablet PO ×2 (10:42→17:38)
[2021-03-10] MEDS: pantoprazole 40 mg SDV IVP ×2 (10:42→22:39)
[2021-03-10] MEDS: lactobacillus 1 Tablet 1 TAB PO ×2 (10:42→17:37)
[2021-03-10] MEDS: sucralfate 1 gm/10 mL Oral Liq UDC PO ×3 (10:42→22:39)
[2021-03-10] MEDS: guaiFENesin 100 mg/5 mL UDC 10 mL 400 MG PO ×3 (12:14→20:09)
--- NOTE | 2021-03-10 14:47 | P.PN_ITS ---
Subjective Subjective: Interval history: Patient was seen sitting in the chair this morning, currently denies any nausea vomiting abdominal pain, H&H has dropped last night to 7.3/ 24 received a unit PRBC last night. Medications: Reviewed: Yes Vitals/I&O/Wt Last Vital Signs Temp 98.3 F 03/10/21 12:00 Pulse 101 H 03/10/21 12:00 Resp 19 H 03/10/21 12:00 BP 143/94 03/10/21 12:00 Pulse Ox 98 03/10/21 12:00 03/09/21 03/10/21 03/10/21 22:59 06:59 14:59 Intake Total 205.833 / 1097.833 600 / 5967.816 6409 / 1490 Output Total 1350 / 1950 500 / 2450 200 / 200 Balance -1144.167 / -852.167 100 / -395.232 8217 / 1290 Weight last 48 hrs Weight 100.471 kg Weight 103.963 kg Physical Exam Narrative: EXAM NARRATIVE: Alert and awake Const: COMMON NORMALS: patient oriented x3 HENMT: COMMON NORMALS: normocephalic and atraumatic HEAD & SCALP: normocephalic and atraumatic Chest: CHEST: Yes Symmetrical chest wall rise Resp: OTHER: Coarse breath sounds bilaterally. Cardio: COMMON NORMALS: regular rate, regular rhythm, S1 normal heart sound present, S2 normal heart sound present, No gallops present (Cardio), No murmurs present (Cardio), No rub (Cardio) and Peripheral pulses 2+ throughout RATE: regular rate RHYTHM: regular rhythm HEART SOUNDS: S1 normal heart sound present and S2 normal heart sound present PERIPHERAL PULSES: Peripheral pulses 2+ throughout GI: COMMON NORMALS: Normal to inspection, nondistended, normoactive bowel sounds present, Soft to palpation, non-tender, No hepatosplenomegaly present and no masses AUSCULTATION: Yes normoactive bowel sounds PALPATION: Yes Soft to palpation and Yes No hepatosplenomegaly present RECTAL EXAM: Yes deferred Extremity: COMMON NORMALS: no clubbing, cyanosis or edema and no pedal edema Neuro: COMMON NORMALS: patient oriented x3 Urinary Catheter Management^: Bills: Cath Placed During This Visit: no Reason for Continuing Indwelling Catheter: Accurate Measurement of Urinary Output in Critically Ill Patients Data : 03/10/21 05:30 03/10/21 05:30 Micro: Microbiology 03/09/21 18:37 MRSA Culture - Final Nose 03/08/21 00:00 Urine Culture - Final Urine,Voided A&P Assessment and plan (1) Acute encephalopathy: Improving Multifactorial secondary to hypoxemia, metabolic abnormalities, possibly effect from chronic medications in the setting of acute renal failure, plus or minus related to acute infection: Improving: Status: Acute (2) Septic shock: Severe shock: Likely hypovolemic : As evidenced by persistent hypotension despite IV fluids and requiring pressors, sinus tachycardia, leukocytosis, acute renal failure, acute encephalopathy, elevation in D-dimer Likely secondary to GI bleed, sepsis could be a contributor. Elevated WBC, lactic acid and pro Refugio, could come from severe dehydration secondary to volume loss, as well as secondary to acute renal failure. Blood culture: NTD Urine culture : NTD Procalcitonin: 2.79---> 1.92 Lactic acid: 5--> 2.5 MRSA PCR: Positive CT abdomen and pelvis without contrast: No acute findings X-ray chest : Patchy atelectasis and/or pneumonia in the left lower lobe,Patchy atelectasis in right midlung. Initially on Vanco and Zosyn, Levofloxacin. Will narrow antibiotic coverage to ceftriaxone IV 1 mg every 24 daily. Status: Acute (3) Acute renal failure: Resolved Pre renal RONALD likely secondary to hypotension suspect related to ATN. He is chronically on NSAID therapy and does have a history of BPH. Baseline serum creatinine unknown: Admission serum creatinine: 3.3--> currently serum creatinine has normalized. CT abdomen and pelvis has failed to show any obstructive pathology Patient is continuing to make good urine output.Likely in polyuric phase of ATN. Continue to monitor intake output Monitor BMP Avoid nephrotoxic's Continue gentle IV hydration with normal saline at the rate of 30 cc an hour. Status: Acute Qualifiers: Acute renal failure type: with acute tubular necrosis Qualified Code(s): N17.0 - Acute kidney failure with tubular necrosis (4) Normocytic anemia: Likely secondary to upper GI bleed. FOBT is positive S/p 3 units PRBC as well as 1 bag of FFP. Monitor CBC Status: Acute (5) GI bleed: Likely secondary to NSAID use. S/P EGD: Severe esophagitis. Initially on Protonix drip.Has been switched to Protonix 40mg IV every 12 hours daily Status: Acute (6) Respiratory failure with hypoxia: Acute hypoxic respiratory failure likely secondary to aspiration pne umonia. Initial chest x-ray is failing to show any infiltrate. Post adequate IV hydration repeat chest x-ray was done: has Failed to show any infiltrate. 2D echo: Normal LV cavity size normal LVEF:65%, no gross valvular abnormality. Currently broadly covered with antibiotic. Status: Acute (7) BPH (benign prostatic hyperplasia): Chronically on Flomax Status: Chronic Qualifiers: Lower urinary tract symptom presence: unspecified whether lower urinary tract symptoms present Qualified Code(s): N40.0 - Benign prostatic hyperplasia without lower urinary tract symptoms (8) Alcohol use disorder, moderate, in sustained remission: Status: Chronic (9) Hyperkalemia: Patient has received dextrose insulin, calcium gluconate as well as Kayexalate, along with nebulization. Current serum potassium is has normalized. 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 On oral K-Phos 20 mg p.o. twice daily Monitor serum phosphorus for now. Status: Acute (11) Major depressive disorder, recurrent severe without psychotic features: Will resume home medications. Status: Chronic Additional A&P Information Elevated CK level, mild Elevation in BNP of currently unclear significance, may simply be related to renal failure Elevated blood sugar without a history of diabetes Multiple psychiatric diagnoses for which he is chronically on BuSpar, clomipramine, hydroxyzine, mirtazapine, Seroquel, Effexor [facility] Chronic pain for which she has been treated with NSAIDs, Flexeril and gabapentin Inpatient admission to the ICU Add Levaquin to Zosyn Status post 1 dose of vancomycin in the emergency room Renal dose antibiotics Received 2 L of fluids in the emergency room without improvement in blood pressures We will recheck BMP to ensure improvement in potassium level Repeat stat lactic acid and troponin Blood cultures were collected in the emergency room Continue IV fluids secondary to renal failure and elevation in CK level but at low rate, monitor tolerance of fluids Recheck CK level Monitor overall volume status Check ferritin, LDH, PT and PTT, fibrinogen, pro calcitonin Covid PCR was collected in the emergency room Continue Covid isolation in the interim Continue oxygen therapy, weaning as able Check echocardiogram in the morning Check venous Doppler of the lower extremities Unable to check CTA of the chest currently due to renal failure Will cover empirically with subcutaneous heparin; have not initiated treatment dose anticoagulation empirically until I get an idea of next H&H though may consider if H&H is stable; with fluids given expect drop in hemoglobin Lipid panel in the morning as previous lipid panel from a year ago showed elevation Sliding scale initially, check hemoglobin A1c Hold home medications presently secondary to multiple abnormalities Supportive care otherwise Monitor patient closely for progressive decline Pending/ordered tests/procedures to follow: Multiple labs, echocardiogram, venous ultrasound of both lower extremities have been ordered Lines/tubes: Central line in the right neck, Bills catheter DVT prophylaxis: Subcutaneous heparin and SCDs Plans, findings and concerns discussed with patient is much as he could understand and he was given an opportunity to ask questions. not available at the time of my evaluation either here or by phone. Anticipated Disposition: Home although will ultimately depend on clinical course given the severity of current illness Code Status: Full code Attestations Medical Necessity Statement*: Patient need to be in the hospital for the management of shock and GI bleed. Coding Level of Care Code Acute Mobile Product Manager for [facility] F[employer] Exam Detailed Diagnoses Acute encephalopathy G93.40 Septic shock A41.9; R65.21 Acute renal failure N17.0 Acute renal failure type: with acute tubular necrosis Normocytic anemia D64.9 GI bleed K92.2 Respiratory failure with hypoxia J96.91 BPH (benign prostatic hyperplasia) N40.0 Lower urinary tract symptom presence: unspecified whether lower urinary tract symptoms present Alcohol use disorder, moderate, in sustained remission F10.21 Hyperkalemia E87.5 Hypophosphatemia E83.39 Major depressive disorder, recurrent severe without psychotic features F33.2
--- NOTE | 2021-03-10 17:08 | PC.NURSE ---
Mother called and updated on patient's status. No further questions.
[2021-03-10] MEDS: cefTRIAXone 1,000 MG in sodium chloride 0.9% (plus) 50 ML 100 MG IV (17:37)
[2021-03-10] MEDS: bacitracin ointment 28 gm 1 APPLIC TOPICAL (17:38)
[2021-03-10 17:54] LABS: Glucose Point of Care 103 mg/dL (70-110)
--- NOTE | 2021-03-10 19:29 | PC.NURSE ---
Report received. Pt resting in bed. AAOx3. Denies pain or SOB. O2@4Lnc. NS @30ml/h. Bills cath draining freely to BSD. All IV's flush freely. Will monitor.
[2021-03-10] MEDS: quetiapine 100 mg Tablet PO (20:09)
[2021-03-10 20:15] LABS: Glucose Point of Care 110 mg/dL (70-110)
--- NOTE | 2021-03-10 23:04 | PC.NURSE ---
PT NC off to side of nose, desatted into 80's. NC replaced. O2sat up to low 90's. Will monitor.
[2021-03-11] VITALS (53 sets, daily range): BP systolic 112–162; BP diastolic 76–116; PULSE 86–110; RESP 13–29; TEMP 36.6–37.1; O2SAT 85–99
[2021-03-11] MEDS: ipratropium-albuterol 3 mL Neb INHALATION ×4 (03:20→21:10)
--- NOTE | 2021-03-11 03:37 | PC.NURSE ---
Pt c/o pain to renteria cath, stat lock noted to have come undone. Slight hematuria noted. Renteria care completed, area cleaned and new stat lock placed. Pt educated to be careful turning in bed as this may cause the tubing to pull and cause the pain that he felt.
[2021-03-11 04:38] LABS: Magnesium 1.7 mg/dL (1.7-2.3); Phosphorus 2.5 mg/dL (2.5-4.5)
[2021-03-11 04:44] LABS: Procalcitonin 0.62 ng/mL (0-0.5)
[2021-03-11] MEDS: guaiFENesin 100 mg/5 mL UDC 10 mL 400 MG PO ×5 (04:54→20:29)
[2021-03-11] MEDS: sucralfate 1 gm/10 mL Oral Liq UDC PO ×4 (04:55→22:25)
[2021-03-11 08:24] LABS: Glucose Point of Care 98 mg/dL (70-110)
[2021-03-11] MEDS: bacitracin ointment 28 gm 1 APPLIC TOPICAL ×2 (08:26→17:06)
[2021-03-11] MEDS: tamsulosin 0.4 mg Capsule PO (08:26)
[2021-03-11] MEDS: docusate sodium 100 mg Capsule PO (08:26)
[2021-03-11] MEDS: venlafaxine ER (24HR) 75 mg Capsule PO (08:26)
[2021-03-11] MEDS: lactobacillus 1 Tablet 1 TAB PO ×2 (08:26→17:05)
[2021-03-11] MEDS: phosphorus 250 mg Tablet PO ×2 (08:26→17:06)
--- NOTE | 2021-03-11 10:19 | PM.PN ---
Subjective Subjective: Interval history: No acute events overnight, overall patient has done well, hemoglobin has remained stable at 9.2. Medications: Reviewed: Yes Vitals/I&O/Wt Last Vital Signs Temp 98.2 F 03/11/21 10:00 Pulse 105 H 03/11/21 10:00 Resp 16 03/11/21 10:00 BP 127/83 03/11/21 10:00 Pulse Ox 92 03/11/21 10:00 03/10/21 03/11/21 03/11/21 22:59 06:59 14:59 Intake Total 340 / 1830 180 / 2009 Output Total 550 / 750 1000 / 1750 Balance -210 / 1080 -820 / 260 Weight last 48 hrs Weight 98.458 kg Weight 100.471 kg Physical Exam Narrative: EXAM NARRATIVE: Alert and awake Const: COMMON NORMALS: patient oriented x3 HENMT: COMMON NORMALS: normocephalic and atraumatic HEAD & SCALP: normocephalic and atraumatic Chest: CHEST: Yes Symmetrical chest wall rise Resp: OTHER: Coarse breath sounds bilaterally. Cardio: COMMON NORMALS: regular rate, regular rhythm, S1 normal heart sound present, S2 normal heart sound present, No gallops present (Cardio), No murmurs present (Cardio), No rub (Cardio) and Peripheral pulses 2+ throughout RATE: regular rate RHYTHM: regular rhythm HEART SOUNDS: S1 normal heart sound present and S2 normal heart sound present PERIPHERAL PULSES: Peripheral pulses 2+ throughout GI: COMMON NORMALS: Normal to inspection, nondistended, normoactive bowel sounds present, Soft to palpation, non-tender, No hepatosplenomegaly present and no masses AUSCULTATION: Yes normoactive bowel sounds PALPATION: Yes Soft to palpation and Yes No hepatosplenomegaly present RECTAL EXAM: Yes deferred Extremity: COMMON NORMALS: no clubbing, cyanosis or edema and no pedal edema Neuro: COMMON NORMALS: patient oriented x3 Urinary Catheter Management^: Bills: Cath Placed During This Visit: no Reason for Continuing Indwelling Catheter: Accurate Measurement of Urinary Output in Critically Ill Patients Data : 03/11/21 16:32 03/10/21 05:30 Micro: Microbiology 03/09/21 18:37 MRSA Culture - Final Nose 03/08/21 00:00 Urine Culture - Final Urine,Voided A&P Assessment and plan (1) Acute encephalopathy: Improving Multifactorial secondary to hypoxemia, metabolic abnormalities, possibly effect from chronic medications in the setting of acute renal failure, plus or minus related to acute infection: Improving: Status: Acute (2) Septic shock: Severe shock: Likely hypovolemic : As evidenced by persistent hypotension despite IV fluids and requiring pressors, sinus tachycardia, leukocytosis, acute renal failure, acute encephalopathy, elevation in D-dimer Likely secondary to GI bleed, sepsis could be a contributor. Elevated WBC, lactic acid and pro Refugio, could come from severe dehydration secondary to volume loss, as well as secondary to acute renal failure. Blood culture: NTD Urine culture : NTD Procalcitonin: 2.79---> 1.92 Lactic acid: 5--> 2.5 MRSA PCR: Positive CT abdomen and pelvis without contrast: No acute findings X-ray chest : Patchy atelectasis and/or pneumonia in the left lower lobe,Patchy atelectasis in right midlung. Initially on Vanco and Zosyn, Levofloxacin. Will narrow antibiotic coverage to ceftriaxone IV 1 mg every 24 daily. Status: Acute (3) Acute renal failure: Resolved Pre renal RONALD likely secondary to hypotension suspect related to ATN. He is chronically on NSAID therapy and does have a history of BPH. Baseline serum creatinine unknown: Admission serum creatinine: 3.3--> currently serum creatinine has normalized. CT abdomen and pelvis has failed to show any obstructive pathology Patient is continuing to make good urine output.Likely in polyuric phase of ATN. Continue to monitor intake output Monitor BMP Avoid nephrotoxic's Continue gentle IV hydration with normal saline at the rate of 30 cc an hour. Status: Acute Qualifiers: Acute renal failure type: with acute tubular necrosis Qualified Code(s): N17.0 - Acute kidney failure with tubular necrosis (4) Normocytic anemia: Likely secondary to upper GI bleed. FOBT is positive S/p 3 units PRBC as well as 1 bag of FFP. Monitor CBC Status: Acute (5) GI bleed: Likely secondary to NSAID use. S/P EGD: Severe esophagitis. Initially on Protonix drip.Has been switched to Protonix 40mg IV every 12 hours daily Status: Acute (6) Respiratory failure with hypoxia: Acute hypoxic respiratory failure likely secondary to aspiration pneumonia. Initial chest x-ray is failing to show any infiltrate. Post adequate IV hydration repeat chest x-ray was done: has Failed to show any infiltrate. 2D echo: Normal LV cavity size normal LVEF:65%, no gross valvular abnormality. Currently broadly covered with antibiotic. Status: Acute (7) BPH (benign prostatic hyperplasia): Chronically on Flomax Status: Chronic Qualifiers: Lower urinary tract symptom presence: unspecified whether lower urinary tract symptoms present Qualified Code(s): N40.0 - Benign prostatic hyperplasia without lower urinary tract symptoms (8) Alcohol use disorder, moderate, in sustained remission: Status: Chronic (9) Hyperkalemia: Patient has received dextrose insulin, calcium gluconate as well as Kayexalate, along with nebulization. Current serum potassium is has normalized. 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 On oral K-Phos 20 mg p.o. twice daily Monitor serum phosphorus for now. Status: Acute (11) Major depressive disorder, recurrent severe without psychotic features: Will resume home medications. Status: Chronic Additional A&P Information Elevated CK level, mild Elevation in BNP of currently unclear significance, may simply be related to renal failure Elevated blood sugar without a history of diabetes Multiple psychiatric diagnoses for which he is chronically on BuSpar, clomipramine, hydroxyzine, mirtazapine, Seroquel, Effexor according to [facility] Chronic pain for which she has been treated with NSAIDs, Flexeril and gabapentin Inpatient admission to the ICU Add Levaquin to Zosyn Status post 1 dose of vancomycin in the emergency room Renal dose antibiotics Received 2 L of fluids in the emergency room without improvement in blood pressures We will recheck BMP to ensure improvement in potassium level Repeat stat lactic acid and troponin Blood cultures were collected in the emergency room Continue IV fluids secondary to renal failure and elevation in CK level but at low rate, monitor tolerance of fluids Recheck CK level Monitor overall volume status Check ferritin, LDH, PT and PTT, fibrinogen, pro calcitonin Covid PCR was collected in the emergency room Continue Covid isolation in the interim Continue oxygen therapy, weaning as able Check echocardiogram in the morning Check venous Doppler of the lower extremities Unable to check CTA of the chest currently due to renal failure Will cover empirically with subcutaneous heparin; have not initiated treatment dose anticoagulation empirically until I get an idea of next H&H though may consider if H&H is stable; with fluids given expect drop in hemoglobin Lipid panel in the morning as previous lipid panel from a year ago showed elevation Sliding scale initially, check hemoglobin A1c Hold home medications presently secondary to multiple abnormalities Supportive care otherwise Monitor patient closely for progressive decline Pending/ordered tests/procedures to follow: Multiple labs, echocardiogram, venous ultrasound of both lower extremities have been ordered Lines/tubes: Central line in the right neck, Bills catheter DVT prophylaxis: Subcutaneous heparin and SCDs Plans, findings and concerns discussed with patient is much as he could understand and he was given an opportunity to ask questions. not available at the time of my evaluation either here or by phone. Anticipated Disposition: Home although will ultimately depend on clinical course given the severity of current illness Code Status: Full code Attestations Medical Necessity Statement*: Patient needs to be in hospital for the management of Shock as well as G.I Bleed. Coding Level of Care Code Acute Contracting Officer for [facility] Fwd Diagnoses Acute encephalopathy G93.40 Septic shock A41.9; R65.21 Acute renal failure N17.0 Acute renal failure type: with acute tubular necrosis Normocytic anemia D64.9 GI bleed K92.2 Respiratory failure with hypoxia J96.91 BPH (benign prostatic hyperplasia) N40.0 Lower urinary tract symptom presence: unspecified whether lower urinary tract symptoms present Alcohol use disorder, moderate, in sustained remission F10.21 Hyperkalemia E87.5 Hypophosphatemia E83.39 Major depressive disorder, recurrent severe without psychotic features F33.2
[2021-03-11] MEDS: pantoprazole 40 mg SDV IVP ×2 (11:56→22:25)
[2021-03-11 12:39] LABS: Glucose Point of Care 118 mg/dL (70-110)
[2021-03-11] MEDS: cefTRIAXone 1,000 MG in sodium chloride 0.9% (plus) 50 ML 100 MG IV (16:04)
[2021-03-11 16:38] LABS: Basophils % 0.3 %; Eosinophils # 0.3 10^3/uL (0.0-0.8); Eosinophils % 2.7 %; Hematocrit 29.3 % (42.0-52.0); Hemoglobin 9.2 g/dL (11.7-16.6); Lymphocytes # 1.9 10^3/uL (0.8-4.8); Lymphocytes % 16.3 %; Mean Corpuscular HGB Conc 31.4 g/dL (30.0-36.0); Mean Corpuscular Hemoglobin 26.1 pg (28.0-34.0); Mean Corpuscular Volume 83.2 fL (80-94); Mean Platelet Volume 10.1 fL (7.4-10.4); Monocytes # 0.6 10^3/uL (0.2-0.9); Monocytes % 4.7 %; Neutrophils # 8.58 10^3/uL (1.8-7.7); Neutrophils % 73.8 %; Nucleated Red Blood Cells # 0.1 /100WBC; Nucleated Red Blood Cells % 0.6 %; Platelet Count 164 10^3/cmm (130-400); Red Blood Count 3.52 10^6/uL (4.1-5.3); Red Cell Distribution Width 16.3 % (12.1-15.1); White Blood Count 11.6 10^3/uL (4.0-10.0)
[2021-03-11 17:17] LABS: Glucose Point of Care 101 mg/dL (70-110)
--- NOTE | 2021-03-11 19:25 | PC.NURSE ---
SHift SUmmary: Uneventful shift. Patient spend most of day resting in bed. Was up to a chair for about 1 hour. He is now starting to take more initiative in self care, but still needs encouragement.
[2021-03-11] MEDS: quetiapine 100 mg Tablet PO (20:29)
--- NOTE | 2021-03-11 21:19 | PC.NURSE ---
Pt resting in bed. AAOx4. Denies any needs. Pericare provided d/t incontinence of bowel. O2@2LNC in use d/t desat earlier. Will monitor.
--- NOTE | 2021-03-11 22:22 | PC.NURSE ---
Report called to Aislinn OBRIEN, awaiting call back with room change.
--- NOTE | 2021-03-11 23:36 | PC.NURSE ---
Transferred pt to room 262. Pt ambulated to new bed, slightly dizzy at first but able to stabilize. Nurse in room.
[2021-03-12] VITALS (8 sets, daily range): BP systolic 132–166; BP diastolic 88–99; PULSE 90–117; RESP 14–20; TEMP 36.5–36.7; O2SAT 92–97
--- NOTE | 2021-03-12 00:05 | PC.NURSE ---
TRANSFER NOTE Received from ICU at 2320. Is alert and oriented. Pleasant. Has speech impediment.Denies pain or discomfort. Bills in place and draining well. Denies any nausea. Does say he has trouble controlling his bowels and goes a little every time he moves or coughs. Triple lumen CVL in place to right IJ.
[2021-03-12] MEDS: guaiFENesin 100 mg/5 mL UDC 10 mL 400 MG PO ×3 (00:47→10:46)
[2021-03-12 00:53] LABS: Glucose Point of Care 94 mg/dL (70-110)
[2021-03-12] MEDS: ipratropium-albuterol 3 mL Neb INHALATION ×2 (03:00→09:32)
[2021-03-12] MEDS: sucralfate 1 gm/10 mL Oral Liq UDC PO ×2 (04:19→10:52)
[2021-03-12 05:55] LABS: Basophils # 0.1 10^3/uL (0.0-0.1); Basophils % 0.5 %; Eosinophils # 0.5 10^3/uL (0.0-0.8); Eosinophils % 4.2 %; Hematocrit 29.7 % (42.0-52.0); Hemoglobin 9.5 g/dL (11.7-16.6); Lymphocytes # 1.7 10^3/uL (0.8-4.8); Lymphocytes % 14.6 %; Mean Corpuscular Hemoglobin 26.6 pg (28.0-34.0); Mean Corpuscular Volume 83.2 fL (80-94); Mean Platelet Volume 10.2 fL (7.4-10.4); Monocytes # 0.6 10^3/uL (0.2-0.9); Monocytes % 5.2 %; Neutrophils # 8.34 10^3/uL (1.8-7.7); Neutrophils % 72.3 %; Nucleated Red Blood Cells # 0.1 /100WBC; Nucleated Red Blood Cells % 0.6 %; Platelet Count 174 10^3/cmm (130-400); Red Blood Count 3.57 10^6/uL (4.1-5.3); Red Cell Distribution Width 16.4 % (12.1-15.1); White Blood Count 11.5 10^3/uL (4.0-10.0)
[2021-03-12 06:07] LABS: Alanine Aminotransferase 96 U/L (0-41); Albumin Level 3.5 g/dL (3.5-5.2); Alkaline Phosphatase 141 IU/L (40-130); Anion Gap 15.2 (5-19); Aspartate Amino Transferase 65 U/L (0-40); Blood Urea Nitrogen 13 mg/dL (6-20); Calcium 8.4 mg/dL (8.5-10.5); Carbon Dioxide 28 mmol/L (22-29); Chloride 99 mmol/L (98-107); Globulin 2.8 g/dL (1.3-4.6); Glomerular Filtration Rate 119.9 mL/min (90-130); Glucose 95 mg/dL (65-115); Osmolality Calculated 288 mOsm/kg (285-295); Phosphorus 2.4 mg/dL (2.5-4.5); Potassium 3.2 mmol/L (3.5-5.1); Sodium 139 mmol/L (136-145); Total Bilirubin 0.4 mg/dL (0.15-1.2); Total Protein 6.3 g/dL (6.6-8.7)
--- NOTE | 2021-03-12 06:24 | PC.NURSE ---
SHIFT SUMMARY Has rested well since transfer from ICU. No c/o pain or discomfort.
[2021-03-12 06:31] LABS: Glucose Point of Care 118 mg/dL (70-110)
--- NOTE | 2021-03-12 10:40 | P.DS_ITS ---
Discharge Providers Date of Admission: 03/08/21 03:28 Date of Discharge: March 12, 2021 Attending Provider at Admission: Tahira Harding MD Attending Provider at Discharge: Roverto Perez MD Primary Care Provider: Shanti Mckeon DO Diagnoses at Discharge Discharge Diagnosis (1) Acute encephalopathy: (2) Septic shock: (3) Acute renal failure: Qualifiers: Acute renal failure type: with acute tubular necrosis Qualified Code(s): N17.0 - Acute kidney failure with tubular necrosis (4) Normocytic anemia: (5) GI bleed: (6) Respiratory failure with hypoxia: (7) BPH (benign prostatic hyperplasia): Qualifiers: Lower urinary tract symptom presence: unspecified whether lower urinary tract symptoms present Qualified Code(s): N40.0 - Benign prostatic hyperplasia without lower urinary tract symptoms (8) Alcohol use disorder, moderate, in sustained remission: (9) Hyperkalemia: (10) Hypophosphatemia: (11) Major depressive disorder, recurrent severe without psychotic features: Reason for Visit Reason for Visit: ams and diff breathing Hospital Course Hospital Course 50 year old male with no significant pmh who presented to the emergency room with decreased level of responsiveness and low oxygen levels, and hypotension.He was admitted for the management of AC metabolic encephalopathy, Shock ( hypovolemic/Septic shock ). RONALD, hyperkalemia.Shock was 2/2 to U.G/I Bleed as well as possible sepsis of uncler source, patient was managed per shock protocol ( I.V Fluid resustication, 3UPRBC, 1 Bag FFP Transfusion, vasopressors,broad spectrum AbXs,Blood culture: NTD,Urine culture : NTD , Procalcitonin: 2.79---> 1.92, Lactic acid: 5--> 2.5, MRSA PCR: Positive, CT abdomen and pelvis without contrast: No acute findings. X-ray chest : Patchy atelectasis and/or pneumonia in the left lower lobe,Patchy atelectasis in right midlung) For his Upper G/I Bleed , he was kept on protonix drip , initially npo , EGD was done, which showed severe esophagitis , he was discharged on po protonix.For hi RONALD which was Pre renal RONALD with possible ATN, he was managed conservatively and responded well to I.V Hydration, at the time of discharge RONALD has resolved he was at his baseline SCR. Hyperkalemia responded to hyperkalemia cocktail.For his Acute hypoxic respiratory failure likely secondary to aspiration pneumonia.He responded well to abxs,2D echo: Normal LV cavity size normal LVEF:65%, no gross valvular abnormality, and other supportive care, at the time of discharge it was resolved he was saturating well on room air. Patient responded well to the above medical management and was discharged in stable condition to home. He wi;; continue to follow his pcp as well as Dr.Jo story as outpatient. Physical Exam Const: COMMON NORMALS: patient oriented x3 HENMT: COMMON NORMALS: normocephalic and atraumatic HEAD & SCALP: normocephalic and atraumatic Chest: CHEST: Yes Symmetrical chest wall rise Resp: COMMON NORMALS: clear to auscultation bilaterally AUSCULTATION: clear to auscultation bilaterally Cardio: COMMON NORMALS: regular rate, regular rhythm, S1 normal heart sound present, S2 normal heart sound present, No gallops present (Cardio), No murmurs present (Cardio), No rub (Cardio) and Peripheral pulses 2+ throughout RATE: regular rate RHYTHM: regular rhythm HEART SOUNDS: S1 normal heart sound present and S2 normal heart sound present PERIPHERAL PULSES: Peripheral pulses 2+ throughout GI: COMMON NORMALS: Normal to inspection, nondistended, normoactive bowel sounds present, Soft to palpation, non-tender, No hepatosplenomegaly present and no masses AUSCULTATION: Yes normoactive bowel sounds PALPATION: Yes Soft to palpation and Yes No hepatosplenomegaly present RECTAL EXAM: Yes deferred Extremity: COMMON NORMALS: no clubbing, cyanosis or edema and no pedal edema Neuro: COMMON NORMALS: patient oriented x3 Urinary Catheter Management^: Bills: Cath Placed During This Visit: no Reason for Continuing Indwelling Catheter: Other Discharge Data Data Completed and Pending: Completed Studies During Hospitalization Category Date Time Status CT abdomen pelvis wo con [id number] Rout ine Cat Scan 03/09/21 10:56 Completed XR KUB portable 7 [id number] Routine Exams 03/08/21 06:14 Completed XR chest 1V natalie ble [id number] Routine Exams 03/09/21 06:00 Completed XR chest 1V natalie ble [id number] Stat Exams 03/07/21 21:55 Completed XR chest 1V natalie ble [id number] Stat Exams 03/07/21 23:48 Completed Pathology: Surgic al [PTH] Routine Pth 03/10/21 10:05 [place] [id number] Routin e Ultrasound 03/08/21 03:28 Completed CV. echo complete * [id number] Routine Ultrasound 03/10/21 05:00 Completed Pending at discharge Category Date Time Status Arterial Blood Ga s W/O Coox Stat Lab 03/07/21 21:55 Ordered Blood Culture Sta t Lab 03/07/21 22:30 Results Complete Blood Co unt w/Auto AM LABS Lab 03/13/21 04:00 Ordered Complete Blood Co unt w/Auto AM LABS Lab 03/14/21 04:00 Ordered Comprehensive Met abolic Panel AM LA BS Lab 03/13/21 04:00 Ordered Comprehensive Met abolic Panel AM LA BS Lab 03/14/21 04:00 Ordered Phosphorus AM LAB S Lab 03/13/21 04:00 Ordered Phosphorus AM LAB S Lab 03/14/21 04:00 Ordered Labs from last 24 hours 03/12/21 03/12/21 03/12/21 05:50 05:12 05:12 WBC 11.5 H RBC 3.57 L Hgb 9.5 L Hct 29.7 L MCV 83.2 MCH 26.6 L MCHC 32.0 RDW 16.4 H Plt Count 174 MPV 10.2 Neut % (Auto) 72.3 Lymph % (Auto) 14.6 [place] % (Auto) 5.2 Eos % (Auto) 4.2 Baso % (Auto) 0.5 Neut # (Auto) 8.34 H Lymph # (Auto) 1.7 [place] # (Auto) 0.6 Eos # (Auto) 0.5 Baso # (Auto) 0.1 Nucleated RBC % (a uto) 0.6 Nucleated RBCs # 0.1 Sodium 139 Potassium 3.2 L Chloride 99 Carbon Dioxide 28 Anion Gap 15.2 BUN 13 Creatinine 0.7 GFR Calculation 119.9 Glucose 95 POC Glucose 118 H Calculated Osmolal ity 288 Calcium 8.4 L Phosphorus 2.4 L Magnesium 2.0 Total Bilirubin 0.4 AST 65 H ALT 96 H Alkaline Phosphata se 141 H Total Protein 6.3 L Albumin 3.5 Globulin 2.8 Crossmatch 03/11/21 03/11/21 03/11/21 20:23 17:08 16:32 WBC 11.6 H RBC 3.52 L Hgb 9.2 L Hct 29.3 L MCV 83.2 MCH 26.1 L MCHC 31.4 RDW 16.3 H Plt Count 164 MPV 10.1 Neut % (Auto) 73.8 Lymph % (Auto) 16.3 [place] % (Auto) 4.7 Eos % (Auto) 2.7 Baso % (Auto) 0.3 Neut # (Auto) 8.58 H Lymph # (Auto) 1.9 [place] # (Auto) 0.6 Eos # (Auto) 0.3 Baso # (Auto) 0.0 Nucleated RBC % (a uto) 0.6 Nucleated RBCs # 0.1 Sodium Potassium Chloride Carbon Dioxide Anion Gap BUN Creatinine GFR Calculation Glucose POC Glucose 94 101 Calculated Osmolal ity Calcium Phosphorus Magnesium Total Bilirubin AST ALT Alkaline Phosphata se Total Protein Albumin Globulin Crossmatch 03/11/21 03/08/21 12:35 04:15 WBC RBC Hgb Hct MCV MCH MCHC RDW Plt Count MPV Neut % (Auto) Lymph % (Auto) [place] % (Auto) Eos % (Auto) Baso % (Auto) Neut # (Auto) Lymph # (Auto) [place] # (Auto) Eos # (Auto) Baso # (Auto) Nucleated RBC % (a uto) Nucleated RBCs # Sodium Potassium Chloride Carbon Dioxide Anion Gap BUN Creatinine GFR Calculation Glucose POC Glucose 118 H Calculated Osmolal ity Calcium Phosphorus Magnesium Total Bilirubin AST ALT Alkaline Phosphata se Total Protein Albumin Globulin Crossmatch See Detail Vitals: Last Vital Signs Temp 98.1 F 03/12/21 10:00 Pulse 100 03/12/21 10:00 Resp 14 03/12/21 10:00 BP 156/91 03/12/21 10:00 Pulse Ox 95 03/12/21 10:00 Discharge Plan Discharge Patient Disposition: Home Condition: Stable Prescriptions: New Protonix 40 mg tablet,delayed release (DR/EC) 40 mg PO BID Qty: 60 RF: 3 Continued venlafaxine [Effexor XR] 75 mg capsule,extended release 24hr 75 mg PO DAILY Qty: 30 RF: 2 venlafaxine [Effexor XR] 150 mg capsule,extended release 24hr 150 mg PO DAILY Qty: 30 RF: 2 gabapentin 600 mg tablet 600 mg PO TID Qty: 90 RF: 2 tamsulosin [Flomax] 0.4 mg capsule 0.4 mg PO DAILY Qty: 30 RF: 3 Allergy Relief(diphenhydramin) 25 mg Tablet 25 - 50 mg PO DAILY PRN (Reason: Allergy Symptoms) RF: 0 Tums 200 mg calcium (500 mg) Tablet,Chewable 200 mg PO PRN RF: 0 cyclobenzaprine 10 mg tablet 10 mg PO BEDTIME RF: 0 hydroxyzine HCl 50 mg tablet 100 mg PO BEDTIME PRN (Reason: insomnia) RF: 0 Seroquel 100 mg tablet 100 mg PO BEDTIME RF: 0 mirtazapine 30 mg tablet 60 mg PO .HS RF: 0 buspirone 10 mg tablet 20 mg PO TID RF: 0 clomipramine 50 mg capsule 50 mg PO BEDTIME RF: 0 Discontinued ibuprofen 600 mg tablet 600 mg PO Q8H PRN (Reason: pain) Qty: 90 RF: 2 mirtazapine 45 mg tablet 45 mg PO BEDTIME RF: 0 Discharge Orders: Discharge Order (Routine); Ordered 03/12/21 Ordered By: Roverto Perez Referrals: Sonny Bass MD [Physician] - 2 weeks (Please call Sunday to schedule a follow up appointment.) Shanti Mckeon DO [Primary Care Provider] - 2 weeks (Please call Sunday to schedule a follow up appointment.) Discharge Diet: Regular Discharge Activity: Resume usual activity Patient Instructions: Pantoprazole (By mouth), GI Bleeding, GI Discharge Instructions, Opioid Safety Discharge Attestations Time Spent in Discharge Care*: less than 30 min Specific Discharge Activities: educating patient, educating and/or supporting family/caregiver, discussing with pcp/other providers, discussing with telephonic case manager/social workers/dc planners, documenting/other paperwork and evaluating patient/reviewing data Status at Discharge: Cognitive status at discharge: cognitively intact , Beh avioral status at discharge: cooperative , Functional status at discharge: independent ambulation Overall status at discharge: patient is back to baseline Quality Metrics Clinical Quality Measures During this hospital stay, did patient experience: None Coding Level of Care Code Acute g DC note Diagnoses Acute encephalopathy G93.40 Septic shock A41.9; R65.21 Acute renal failure N17.0 Acute renal failure type: with acute tubular necrosis Normocytic anemia D64.9 GI bleed K92.2 Respiratory failure with hypoxia J96.91 BPH (benign prostatic hyperplasia) N40.0 Lower urinary tract symptom presence: unspecified whether lower urinary tract symptoms present Alcohol use disorder, moderate, in sustained remission F10.21 Hyperkalemia E87.5 Hypophosphatemia E83.39 Major depressive disorder, recurrent severe without psychotic features F33.2
[2021-03-12] MEDS: lactobacillus 1 Tablet 1 TAB PO (10:47)
[2021-03-12] MEDS: venlafaxine ER (24HR) 75 mg Capsule PO (10:48)
[2021-03-12] MEDS: phosphorus 250 mg Tablet PO (10:49)
[2021-03-12] MEDS: docusate sodium 100 mg Capsule PO (10:50)
[2021-03-12] MEDS: tamsulosin 0.4 mg Capsule PO (10:50)
[2021-03-12] MEDS: bacitracin ointment 28 gm 1 APPLIC TOPICAL (10:52)
[2021-03-12 11:00] LABS: Glucose Point of Care 124 mg/dL (70-110)
== END 2021-03-12 14:46 | disposition home or self-care (01) | DRG 871 ==
LOC: ER 03-08 00:10 → ICU 03-08 06:06 → MEDSURG 03-11 23:22
PROVIDERS: Surgery; Admitting Provider Hospitalist; Emergency Provider Emergency Medicine; PCP Family Medicine; Visit Provider Internal Medicine
PROC: 0DJ08ZZ Inspection of Upper Intestinal Tract, Via Natural or Artificial Opening Endoscopic (ICD-10-PCS; CPT 43235; principal; 2021-03-10 09:00)
DX: A41.9 Sepsis, unspecified organism (principal); R65.21 Severe sepsis with septic shock; G93.41 Metabolic encephalopathy; N17.0 Acute kidney failure with tubular necrosis; J69.0 Pneumonitis due to inhalation of food and vomit; J96.01 Acute respiratory failure with hypoxia; K92.2 Gastrointestinal hemorrhage, unspecified; F33.9 Major depressive disorder, recurrent, unspecified; K20.90 Esophagitis, unspecified without bleeding; K44.9 Diaphragmatic hernia without obstruction or gangrene; T39.395A Adverse effect of other nonsteroidal anti-inflammatory drugs [NSAID], initial encounter; F10.21 Alcohol dependence, in remission; F15.11 Other stimulant abuse, in remission; F12.11 Cannabis abuse, in remission; H91.93 Unspecified hearing loss, bilateral; N40.0 Benign prostatic hyperplasia without lower urinary tract symptoms; M54.40 Lumbago with sciatica, unspecified side; G89.29 Other chronic pain; N52.9 Male erectile dysfunction, unspecified; M16.2 Bilateral osteoarthritis resulting from hip dysplasia; F43.12 Post-traumatic stress disorder, chronic; R47.9 Unspecified speech disturbances; Z87.891 Personal history of nicotine dependence; E87.5 Hyperkalemia; E83.39 Other disorders of phosphorus metabolism; D64.9 Anemia, unspecified; I95.9 Hypotension, unspecified
CPT/HCPCS: 36415; 36416; 36430; 36556; 36592; 36600; 43239; 71045; 74018; 74176; 80048; 80053; 80061; 81001; 82274; 82550; 82570; 82728; 82803; 82962; 83036; 83605; 83615; 83735; 83880; 84100; 84145; 84300; 84484; 84550; 85025; 85378; 85384; 85610; 85730; 86140; 86850; 86900; 86920; 86927; 87040; 87086; 87426; 87635; 87641; 88305; 93005; 93306; 93970; 94640; 94660; 96372; C9113; J0610; J0696; J1100; J1815; J1956; J2060; J2405; J2543; J3370; J3475; J7030; J7040; J7050; P9016; P9017; Q0163

== ENCOUNTER → 2021-03-29 13:11 | Outpatient (BNVA) | payer MEDICAID, SELFPAY | PROVIDERS: PCP Family Medicine; Visit Provider Family Medicine | DX: K92.2 Gastrointestinal hemorrhage, unspecified (principal); N17.0 Acute kidney failure with tubular necrosis | CPT/HCPCS: 80048; 85025 ==

== ENCOUNTER → 2021-03-31 11:02 | Outpatient (BNVA) | payer MEDICAID, SELFPAY | PROVIDERS: PCP Family Medicine; Visit Provider Family Medicine | DX: D64.9 Anemia, unspecified (principal) | CPT/HCPCS: 82728; 83550 ==

== ENCOUNTER → 2021-07-04 10:08 | Outpatient (BNVA) | payer MEDICAID, SELFPAY | PROVIDERS: PCP Family Medicine; Visit Provider Family Medicine | DX: D50.9 Iron deficiency anemia, unspecified (principal) | CPT/HCPCS: 82728; 83550; 85025 ==

== ENCOUNTER → 2021-08-16 13:41 | Outpatient (BNVA) | payer MEDICAID, SELFPAY | PROVIDERS: PCP Family Medicine; Visit Provider Psychiatry & Neurology Psychiatry | DX: F41.1 Generalized anxiety disorder (principal); F43.12 Post-traumatic stress disorder, chronic; F33.2 Major depressive disorder, recurrent severe without psychotic features; H91.90 Unspecified hearing loss, unspecified ear | CPT/HCPCS: 99215 ==

== ENCOUNTER 2021-08-17 12:26 | Outpatient (CLI) | payer MEDICAID, SELFPAY ==
--- NOTE | 2021-08-17 13:00 | MR_ITS ---
WS: [id number] MRI LUMBAR SPINE NONCONTRAST TECHNIQUE: Sagittal T1, T2 and STIR imaging. Axial T1 and T2 imaging. CLINICAL INFORMATION: chronic low back pain with bilateral sciatica COMPARISON: None. FINDINGS: Mild lumbar curve. No acute compression. No high-grade central canal stenosis. Mild disc bulging L5-S 1. L1-L2: No significant disc bulging. Mild facet arthropathy. Spinal canal and foramen are patent. L2-L3: Tiny shallow right subarticular protrusion with slight impingement traversing right L3 nerve r oot. Foramen are patent. Mild facet arthropathy. L3-L4: Mild annular bulging with slight narrowing of the right subarticular recess. Mild facet arthro marques. Spinal canal and foramen are patent. L4-L5: Mild annular bulging with a tiny annular fissure and slight impingement on the traversing L5 n erve roots bilaterally.Moderate facet arthropathy with ligamentum flavum hypertrophy. Foramen are pat ent. L5-S1: Broad-based central disc protrusion with slight impingement on the right greater than left S1 nerve roots. Spinal canal and foramen are patent. Moderate facet arthropathy. Visualized pelvic bony structures: Normal. Paravertebral soft tissues: Normal. MR/MR lumbar spine wo con* [id number] IMPRESSION: 1. Mild lumbar curve. No acute compression. No high-grade central canal stenos is. 2. Annular bulging L4-5 with a tiny annular fissure. Slight impingement anibal sing right greater than left L5 nerve roots in the subarticular recess. Recomme nd correlation with right L5 nerve root symptoms. 3. Shallow broad-based central disc bulging L5-S1 slightly contacts the anibal sing right greater than left S1 nerve roots. 4. Tiny right subarticular protrusion L2-L3 slightly encroaches on the rosy ing right L3 nerve root. 5. Mild to moderate facet arthropathy L2-L3 L3-L4 L4- L5.
== END 2021-08-17 12:27 | disposition home or self-care (01) ==
LOC: RADSHAW 12:27
PROVIDERS: PCP Family Medicine; Visit Provider Family Medicine
DX: M54.42 Lumbago with sciatica, left side (principal); M54.41 Lumbago with sciatica, right side; M47.816 Spondylosis without myelopathy or radiculopathy, lumbar region; M51.26 Other intervertebral disc displacement, lumbar region; M51.27 Other intervertebral disc displacement, lumbosacral region
CPT/HCPCS: 72148

== ENCOUNTER → 2021-12-07 11:56 | Outpatient (BNVA) | payer MEDICAID, SELFPAY | PROVIDERS: PCP Family Medicine; Visit Provider Family Medicine | DX: K29.51 Unspecified chronic gastritis with bleeding (principal); D50.9 Iron deficiency anemia, unspecified; Z13.1 Encounter for screening for diabetes mellitus; Z13.220 Encounter for screening for lipoid disorders; Z13.6 Encounter for screening for cardiovascular disorders; Z12.5 Encounter for screening for malignant neoplasm of prostate; G25.81 Restless legs syndrome; Z12.11 Encounter for screening for malignant neoplasm of colon; M54.42 Lumbago with sciatica, left side; M54.41 Lumbago with sciatica, right side; G89.29 Other chronic pain; Z76.89 Persons encountering health services in other specified circumstances; R03.0 Elevated blood-pressure reading, without diagnosis of hypertension | CPT/HCPCS: 80053; 80061; 84153; 85025 ==

== ENCOUNTER → 2022-03-22 12:06 | Outpatient (BNVA) | payer MEDICAID, SELFPAY | PROVIDERS: PCP Family Medicine; Visit Provider Emergency Medicine | DX: R07.81 Pleurodynia (principal); S22.42XA Multiple fractures of ribs, left side, initial encounter for closed fracture; V89.2XXA Person injured in unspecified motor-vehicle accident, traffic, initial encounter | CPT/HCPCS: 71101 ==